=== PATIENT | female | born 1995 | race Caucasian/White ===

== ENCOUNTER 2020-11-02 06:54 | Outpatient (CLI) | payer OTHER, SELFPAY ==
[2020-11-02 07:28] VITALS: BP 140/86; PULSE 120
--- NOTE | 2020-11-02 07:31 | P.PNOB_ITS ---
OB - Triage/Final Diagnosis Visit Information Date of evaluation: 11/02/20 Reason for evaluation: threatened labor Comments/Additional reasons for admission: I have assessed the risk for this patient, Idalmis Shirley Meyer, and determined that she would benefit [facility] care.
== END 2020-11-02 07:30 | disposition home or self-care (01) ==
LOC: ANHOBOP 07:29 → ANHLDR 07:30
PROVIDERS: PCP Nurse Practitioner Adult Health; Visit Provider Student in an Organized Health Care Education/Training Program
DX: O41.8X90 Other specified disorders of amniotic fluid and membranes, unspecified trimester, not applicable or unspecified (principal); Z3A.00 Weeks of gestation of pregnancy not specified
CPT/HCPCS: 59025; 84112; 99199

== ENCOUNTER 2020-11-16 23:40 | Inpatient (IN) | payer OTHER, MEDICAID, SELFPAY ==
--- NOTE | 2020-11-16 23:40 | LDADM ---
This patient, Idalmis Meyer, was admitted to Labor/Delivery/Recovery 108 on 11/16/20 at 23:40. Plans for labor, pain management and were discussed with patient. Patient/family oriented to hospital policies and general routines including ID bracelet, bed and alarms, visiting hours, pain management, procedures, bathroom and other care routines, personal items, smoking policy, room service/diet and guest tray routines, infant security routines, and visiting hours. Patient/Family are encouraged to report perceived risks to care and to ask questions if they do not understand what they are told or what they should do. See OBIX for further documentation.
[2020-11-16 23:59] VITALS: BP 136/81; PULSE 110; RESP 20; TEMP 36.8
[2020-11-17] VITALS (149 sets, daily range): BP systolic 94–157; BP diastolic 29–103; PULSE 66–153; RESP 18–20; TEMP 36.3–37.7; O2SAT 80–100; BMI 36.1
[2020-11-17 00:24] LABS: Basophils Percent Auto 0.2 % (0.2-1.2); Eosinophils Percent Auto 0.2 % (0-4.4); Hematocrit 30.8 % (37.0-47.0); Hemoglobin 9.6 g/dL (12.0-15.0); Immature Granulocyte Absolute 0.04 K/mm3 (0.00-0.031); Immature Granulocyte Percent A 0.5 % (0-0.5); Lymphocytes Absolute Auto 1.93 K/mm3 (0.9-3.2); Lymphocytes Percent Auto 22.1 % (18.3-44.2); Mean Corpuscular HGB Conc 31.2 g/dl (32-36); Mean Corpuscular Hemoglobin 23.8 pg (26-34); Mean Corpuscular Volume 76.2 fl (80-100); Mean Platelet Volume 9.9 fl (7.4-10.4); Monocytes Absolute Auto 0.7 K/mm3 (0.1-0.6); Monocytes Percent Auto 8.1 % (2.6-8.5); Neutrophils Percent Auto 68.9 % (45.5-73.1); Platelet Count Result 307 k/mm3 (150-375); Red Blood Count 4.04 M/mm3 (4.2-5.4); Red Cell Distribution Width 15.2 % (11.5-14.5); White Blood Count 8.7 K/mm3 (4.5-10.0)
[2020-11-17] MEDS: miSOPROStol 25 MCG TABLET VAGINAL ×2 (01:20→05:25)
--- NOTE | 2020-11-17 07:31 | PM.IMHP ---
H&P: HPI History of Present Illness Date/Time: 11/17/20 07:31 Chief Complaint: IUP at term Narrative: Idalmis Meyer is a 25 year old female at 39w4d who presents for elective IOL. Pt's has been uncomplicated. She endorses good movement. She denies any vaginal bleeding or leakage of fluid. Review of Systems Review of Systems: All systems reviewed & are unremarkable except as noted in HPI and below PMFSH Family History Family History Father Colon cancer Sibling Autism Mother Multiple sclerosis Grandparent Lung cancer Dementia Heart disease Leukemia Pancreatic adenoma Social History Social History Smoking status: Never smoker Substance use: never Spiritual care concerns: No Meds Home Medications and Allergies Home Medications Medication Instructions Recorded Confirmed Type ergocalciferol (vitamin D2) 1,250 mcg PO WEEKLY 10/29/20 11/17/20 History [Vitamin D2] prenat.vits,tj,oaj-kqhf-lgxao 1 tablet PO DAILY 10/29/20 11/17/20 History [ #2] Allergies Allergy/AdvReac Type Severity Reaction Status Date / Time No Known Allergies Allergy Verified 10/29/20 12:29 Vital Signs Vital Signs - 24 hr 11/16/20 23:59 11/17/20 01:12 11/17/20 01:30 Temperature 36.8 C 37.1 C Pulse Rate 110 H 101 H 100 Respiratory Rate 20 18 Blood Pressure 136/81 143/84 H 133/77 11/17/20 02:00 11/17/20 02:30 11/17/20 03:00 Temperature Pulse Rate 98 98 95 Respiratory Rate Blood Pressure 132/77 133/84 131/72 11/17/20 03:30 11/17/20 04:00 11/17/20 04:30 Temperature Pulse Rate 97 96 104 H Respiratory Rate Blood Pressure 123/79 122/79 129/85 11/17/20 05:00 11/17/20 05:26 11/17/20 05:30 Temperature 36.9 C Pulse Rate 105 H 105 H 108 H Respiratory Rate 20 Blood Pressure 134/88 147/84 H 136/90 11/17/20 06:00 11/17/20 06:30 11/17/20 07:00 Temperature Pulse Rate 106 H 94 102 H Respiratory Rate Blood Pressure 139/87 132/78 137/86 11/17/20 07:30 Temperature Pulse Rate 99 Respiratory Rate Blood Pressure 137/87 Exam Const: General: cooperative, healthy appearing and comfortable Eyes: General: appearance normal, both eyes and all related structures Neck: Neck: normal visual inspection Resp: Effort & Inspection: normal respiratory effort and able to speak in complete sentences Auscultation: clear to auscultation bilaterally Cardio: Rate: regular rate Rhythm: regular rhythm GI: Inspection: other (Gravid) Skin: General skin exam: normal color Psych: Appearance: grossly normal Mental Status: mental status grossly normal Speech and movement: Normal speech and movement present Affect: normal affect H&P: Results Labs Labs: Short CBC 11/17/20 Range/Units 00:15 WBC 8.7 (4.5-10.0) K/mm3 Hgb 9.6 L (12.0-15.0) g/dL Hct 30.8 L (37.0-47.0) % Plt Count 307 (150-375) k/mm3 Assessment and Plan Assessment and plan (1) Supervision of high risk , unspecified, third trimester: Code(s): O09.93 - Supervision of high risk , unspecified, third trimester Status: Acute Assessment and Plan: 25 yo at 39w4d for elective IOL Rh+ GBS neg FHT cat 1 plan for cytotec induction will augment with pitocin once favorable continuous EFM
[2020-11-17 07:50] LABS: Rapid Plasma Reagin Non-Reactive (NonReactive)
--- NOTE | 2020-11-17 09:38 | WPDANESEPP ---
Anes - Eval Pre Procedure Procedure: labor epidural Date/Time: 11/17/20 09:38 Surgeon: Kacy Preop Diagnosis: Abd pain with contractions Pre Op Diagnosis: Induction of Labor Patient Data Age: 25 Gender: F Height: 5 ft 2 in Weight: 89.5 kg Last Vital Signs Temp 98.4 F 11/17/20 05:26 Pulse 96 11/17/20 09:30 Resp 20 11/17/20 05:26 BP 131/85 11/17/20 09:30 Allergies Allergy/AdvReac Type Severity Reaction Status Date / Time No Known Allergies Allergy Verified 10/29/20 12:29 Home Medications Medication Instructions Recorded Confirmed Type ergocalciferol (vitamin D2) 1,250 mcg PO WEEKLY 10/29/20 11/17/20 History [Vitamin D2] prenat.vits,tj,eyz-fxis-uvtyg 1 tablet PO DAILY 10/29/20 11/17/20 History [ #2] Laboratory Tests 11/17/20 11/17/20 11/17/20 00:15 00:15 00:15 WBC 8.7 K/mm3 K/mm3 (4.5-10.0) RBC 4.04 M/mm3 L M/mm3 (4.2-5.4) Hgb 9.6 g/dL L g/dL (12.0-15.0) Hct 30.8 % L % (37.0-47.0) MCV 76.2 fl L fl (80-100) MCH 23.8 pg L pg (26-34) MCHC 31.2 g/dl L g/dl (32-36) RDW 15.2 % H % (11.5-14.5) Plt Count 307 k/mm3 k/mm3 (150-375) MPV 9.9 fl fl (7.4-10.4) Immature Gran % (Auto) 0.5 % % (0-0.5) Neut % (Auto) 68.9 % % (45.5-73.1) Lymph % (Auto) 22.1 % % (18.3-44.2) Major % (Auto) 8.1 % % (2.6-8.5) Eos % (Auto) 0.2 % % (0-4.4) Baso % (Auto) 0.2 % % (0.2-1.2) Lymph # (Auto) 1.93 K/mm3 K/mm3 (0.9-3.2) Major # (Auto) 0.7 K/mm3 H K/mm3 (0.1-0.6) Eos # (Auto) 0.0 K/mm3 K/mm3 (0-0.3) Baso # (Auto) 0.0 K/mm3 K/mm3 (0.0-0.1) Abs Immat Gran (auto) 0.04 K/mm3 H K/mm3 (0.00-0.031) Absolute Neuts (auto) 6.0 K/mm3 K/mm3 (1.3-6.7) Absolute Nucleated RBC 0.0 K/mm3 K/mm3 (0.0-0.012) Nucleated RBC % 0.0 % % (0.0-0.2) RPR Non-reactive (NonReactive) Blood Type A Positive Antibody Screen Negative Patient hx anesthesia problems: none Family hx anesthesia problems: none PMFSH Past Medical History Medical History Anemia Anxiety and depression GERD (gastroesophageal reflux disease) History of paroxysmal supraventricular tachycardia Overweight (BMI 25.0-29.9) PCOS (polycystic ovarian syndrome) and not yet delivered Family History Family History Father Colon cancer Sibling Autism Mother Multiple sclerosis Grandparent Lung cancer Dementia Heart disease Leukemia Pancreatic adenoma Social History Social History Smoking status: Never smoker Substance use: never Spiritual care concerns: No Exam Day of Procedure 11/17/20 09:38 Patient weight: overweight Airway: Mallampati scale class II Neurological: alert and oriented
--- NOTE | 2020-11-17 10:13 | PM.OBPNLAB ---
Pain Control Date/time seen: 11/17/20 10:13 Pain control: tolerating well Comments: pt s/p cytotec x2. cervix now 2cm and soft Pelvic Exam Dilation (cm): 2 Amniotic membrane status: Intact Contractions Monitor mode: External Contraction pattern: Regular Status status: Category l Comments: baseline 135 bpm, mod variability, no decel, positive accels Assessment and Plan Assessment: induction ongoing Plan: continuous present management Comments: cervical ware bulb placed with 60 cc of saline and placed on traction.
[2020-11-17] MEDS: fentaNYL CITRATE INJ (*CRX) 100 MCG/2 ML VIAL IV PUSH ×2 (10:58→12:53)
[2020-11-17] MEDS: LACTATED RINGERS 1,000 ML 125 ML IV CONT ×3 (15:08→18:33)
--- NOTE | 2020-11-17 16:07 | PM.OBPNLAB ---
Pain Control Date/time seen: 11/17/20 16:07 Pain control: epidural Pelvic Exam Dilation (cm): 4 Amniotic membrane status: Ruptured (clear fluid) Contractions Monitor mode: Internal Contraction pattern: Regular Status status: Category l Assessment and Plan Assessment: induction ongoing Plan: continuous present management Comments: AROM for clear fluid. IUPC placed. pitocin currently at 2
[2020-11-17] MEDS: OXYTOCIN 30 UNITS/NS 500 ML 30 UNITS/500 ML BAG IV CONT (16:13)
[2020-11-17] MEDS: ONDANSETRON INJ 4 MG/2 ML VIAL IV PUSH (20:04)
--- NOTE | 2020-11-17 21:32 | PM.OBPRVD ---
OB - Delivery Note Procedure Procedure: Patient pushed for a spontaneous vaginal delivery. The fetus was delivered atraumatically and placed on the maternal abdomen. The cord was clamped and cut after 1 minute of life. The cord was double clamped and cut and a segment of cord was collected for cord gases. Cord blood was collected for blood type and Coomb's testing. The placenta delivered spontaneously and was noted to be intact. The perineum was inspected and there was a 1st degree perineal and left labial laceration. The laceration was repaired with 3-0 vicryl in the usual fashion. The uterus was firm and good hemostasis was noted. The patient and fetus were stable in the delivery room. Intrapartal events: None Induction method: per misoprostol protocol Delivery augmentation: rupture of membranes Delivery monitor: external FHT Route of delivery: Episiotomy description: None Laceration Description: Perineal - 1st Degree and Labial (left) Delivery repair: vicryl Specimen: No Quantitative Blood Loss (ml): 250 Anesthesia type: Epidural Disposition: floor () Complications: No immediate complications [place] Baby Date of : 11/17/20 Time of : 21:15 Weeks of gestation at delivery: 39 gender: Male Weight (pounds): 7 Weight (ounces): 11 presentation: vertex position: Right Occiput Anterior Placenta delivery description: Spontaneous cord vessel description: 3 Vessels and Nuchal Cord score one minute: 9 score five minutes: 9
[2020-11-17] MEDS: OXYTOCIN 30 UNITS/NS 500 ML 30 UNITS/500 ML BAG 125 UNITS IV CONT (22:15)
[2020-11-17] MEDS: IBUPROFEN 600 MG TABLET PO (23:36)
[2020-11-17] MEDS: BENZOCAINE 20% AER SPR (*SP) 56 GM CAN 1 SPRAY TOPICAL (23:37)
[2020-11-17] MEDS: WITCH HAZEL 40 PADS 1 PAD TOPICAL (23:37)
--- NOTE | 2020-11-18 00:02 | OBPPTRN ---
Patient transferred to post room #292 via wheelchair with in crib. Support person present. Oriented to unit, room, information board, rooming in, admission packet and security measures. Patient verbalizes understanding.
[2020-11-18 00:20] VITALS: BP 126/86; PULSE 89; RESP 16; TEMP 36.7
[2020-11-18 04:00] VITALS: BP 121/82; PULSE 91; RESP 16; TEMP 37.1
[2020-11-18 05:27] LABS: Hematocrit 24.5 % (37.0-47.0); Hemoglobin 7.5 g/dL (12.0-15.0)
[2020-11-18] MEDS: MULTIVIT/MIN/PREN/FOL AC/IRON TABLET 1 TAB PO (07:22)
[2020-11-18] MEDS: POLYSACCHARIDE IRON COMPLEX 150 MG CAPSULE PO ×2 (07:22→15:37)
[2020-11-18] MEDS: DOCUSATE SODIUM 100 MG CAPSULE PO ×2 (07:22→15:37)
[2020-11-18] MEDS: IBUPROFEN 600 MG TABLET PO ×2 (07:22→15:38)
[2020-11-18 07:30] VITALS: BP 102/66; PULSE 100; RESP 18; TEMP 36.4; O2SAT 100
--- NOTE | 2020-11-18 08:42 | PM.OBPNVD ---
OB - PN: Subj Subjective Date/time seen: 11/18/20 08:42 Patient comments: no complaints, pain well controlled and tolerating diet [place] feeding status: exclusively breast feeding Narrative: patient doing well this AM. No complaints. Pain is well controlled. She reports minimal bleeding. She is ambulating and voiding without difficulty. She is tolerating PO. She denies N/V, fever, chills. OB - PN: Obj Data Labs CBC & Chem 7: 11/18/20 05:18 Labs: Laboratory Results - last 24 hr 11/18/20 05:18 Hgb 7.5 L Hct 24.5 L OB - PN A/P Plan day: 1 Plan: routine care Comments: patient doing well H/H 7.02/06, iron supplementation, VSS plan for circumcision today. Risks, benefits, alternatives discussed. continue routine care Time Spent With Patient Time: Total time spent is greater than 50% in coordination of care (as documented) at patient's floor/unit and/or counseling patient: Time with patient: less than 15 minutes Review of Systems Review of Systems: All systems reviewed & are unremarkable except as noted in HPI and below Exam Const: General: comfortable and no acute distress Resp: Effort & Inspection: normal respiratory effort Cardio: Rate: regular rate GI: GI Palp: Yes Soft to palpation and No Tenderness to palpation present (GI) Auscultation: normal bowel sounds Other: fundus firm and below umbilicus. Psych: Affect: normal affect
--- NOTE | 2020-11-18 09:46 | WPDANLDPN2 ---
Anes-Prog Note L&D Date/Time: 11/18/20 09:46 Comfortable throughout: labor and delivery Neuraxial method: epidural Epidural/Spinal procedure site: clean & non-tender Neuro status: Neuro function grossly intact. Cardiovascular status: normal Respiratory status: normal Airway patency: baseline Mental status: baseline Post-Op hydration status: normal Vital Signs: Last Vital Signs Temp 36.4 C 11/18/20 07:30 Pulse 100 11/18/20 07:30 Resp 18 11/18/20 07:30 BP 102/66 11/18/20 07:30 Pulse Ox 100 11/18/20 07:30 Pain score (VAS): 0 I/O: Intake & Output 11/17/20 11/18/20 11/18/20 23:59 07:59 15:59 Intake Total 3100 Output Total 157 Balance 2943 Post-procedural complaints: none Patient feedback: Patient satisfied with anesthetic care.
[2020-11-18 12:18] VITALS: BP 108/64; PULSE 95; RESP 16; TEMP 37.2; O2SAT 100
--- NOTE | 2020-11-18 14:15 | PC.NURSE ---
Consulted with patient, reports infant has fed well since . Mother has nipple discomfort with latch during most of the feeding. Nipple care reviewed and lanolin provided. Mother voices concern with milk supply due to PCOS and issues with fertility. Discussed how this may impact milk supply and reviewed signs of low milk supply. Advised to continue to breastfeed every three hours both breasts if is willing. Mother can initiate pumping a few times a day to stimulate supply. Suggested mother call if she has any issues after discharge. Reviewed feeding cues, frequencies, duration of feedings, feeding elimination flow sheet, and signs of adequate intake. Demonstrated stimulation techniques to wake infant for feeding. Assisted with to breast. Reviewed positioning/alignment in cross cradle, holding breast in U hold and guided asymmetrical latch on. Infant was able to latch correctly within a few attempts. Infant nursed eagerly, with steady draws and frequent swallowing noted. Reviewed signs of a correct latch, effective nursing and suck swallow ratio. was able to maintain latch. Mother reported tenderness at times, had slipped to shallow latch. Demonstrated how to adjust latch more deeply while feeding. Mother quickly reports she can feel infant is latched more deeply and has minimal tenderness. Suggested to stimulate infant while feeding to keep awake and nursing effectively for increased stimulation and increased intake. Instructed mother to call out for RN assistance if she is unable to latch infant for feeding or she has discomfort with nursing. Instructed feeding should be initiated three hours from start of last feeding or if feeding cues are noted before. Mother voiced understanding of information shared. Reviewed transition to breast milk, signs of adequate intake, and engorgement/relief. Instructed to call ICP if intake/output less than required. Reviewed regular medications mother is taking. Information provided per Ingrid. Reviewed community resources on the [facility] website and in the Mom/Baby guide. Information on outpatient services provided. Mother has no further questions at this time.
[2020-11-18 16:00] VITALS: BP 114/80; PULSE 87; RESP 20; TEMP 37.2
[2020-11-18 21:20] VITALS: BP 109/72; PULSE 90; RESP 15; TEMP 36.8
[2020-11-19 07:30] VITALS: BP 127/74; PULSE 97; RESP 18; TEMP 37.4; O2SAT 99
[2020-11-19] MEDS: POLYSACCHARIDE IRON COMPLEX 150 MG CAPSULE PO (09:31)
[2020-11-19] MEDS: DOCUSATE SODIUM 100 MG CAPSULE PO (09:31)
[2020-11-19] MEDS: MULTIVIT/MIN/PREN/FOL AC/IRON TABLET 1 TAB PO (09:31)
[2020-11-19] MEDS: IBUPROFEN 600 MG TABLET PO (09:35)
[2020-11-19] MEDS: BENZOCAINE 20% AER SPR (*SP) 56 GM CAN 1 SPRAY TOPICAL (10:30)
[2020-11-19] MEDS: WITCH HAZEL 40 PADS 1 PAD TOPICAL (10:30)
--- NOTE | 2020-11-19 11:26 | PM.OBPNVD ---
OB - PN: Subj Subjective Date/time seen: 11/19/20 11:26 Narrative: Pain OK. Would like to go home. OB - PN: Obj Data Labs CBC & Chem 7: 11/18/20 05:18 OB - PN A/P Plan Comments: A: PPD#2, doing well. P: Home to f/u 6 weeks. Exam Psych: Other: AVSS ABD soft, nontender, fundus firm EXT nontender
--- NOTE | 2020-11-19 11:26 | PM.OBDSVD ---
DS: Admitting Diagnosis Admitting Diagnosis Admitting Diagnosis: IUP at term DS: Discharge Diagnosis Discharge Diagnosis (1) (normal spontaneous vaginal delivery): Code(s): O80 - Encounter for full-term uncomplicated delivery Status: Acute OB - DS: Summary OB Procedures : None OB Procedures Intrapartum: Spontaneous Vag Delivery OB Procedures: : None Discharge Plan Discharge Attending physician on discharge: Izaiah Woodruff Discharging Clinician: Julio Cesar Lopez Patient Disposition: Home, Self-Care Activity: pelvic rest Diet: regular Discharge Instructions: Call or return if temperature above 100.4? F, increased abdominal pain, increased vaginal bleeding or any new problems. Stand Alone Forms: General Discharge Information Follow-up/Referrals: Izaiah Woodruff MD [Physician] - 6 Weeks Discharge Medications: New ibuprofen 600 mg tablet 600 mg PO Q6H PRN (Reason: cramps) Qty: 30 RF: 0 ferrous sulfate 325 mg (65 mg iron) tablet 325 mg PO DAILY Qty: 30 RF: 0 No Action ergocalciferol (vitamin D2) [Vitamin D2] 1,250 mcg (50,000 unit) Capsule 1,250 mcg PO WEEKLY RF: 0 #2 Tablet 1 tablet PO DAILY RF: 0 Date of admission: 11/16/20 23:40 Primary Care Provider: Sirisha Argueta Admitting Provider: Izaiah Woodruff Attending physician on admission: Izaiah Woodruff Condition: Stable
--- NOTE | 2020-11-19 12:58 | PC.NURSE ---
Patient instructed on viewing the discharge video Mother & Baby Care, The First Two Weeks . Patient was given the opportunity and encouraged to ask questions. Patient verbalized understanding of information shared and has been given the mother/baby guide for home reference.
[2020-11-21 07:53] VITALS: BP 134/85; PULSE 100; RESP 20; TEMP 37.1; O2SAT 100
== END 2020-11-19 13:03 | disposition home or self-care (01) | DRG 807 ==
LOC: ANHLDR 11-17 12:35 → ANHOB2 11-19 11:28 → ANHLDR 11-21 20:15 → ANHOB2 11-21 20:15
PROVIDERS: Admitting Provider Student in an Organized Health Care Education/Training Program; PCP Nurse Practitioner Adult Health; Visit Provider Obstetrics & Gynecology
DX: O69.81X0 Labor and delivery complicated by cord around neck, without compression, not applicable or unspecified (principal); Z37.0 Single live birth; Z3A.39 39 weeks gestation of pregnancy; O36.8330 Maternal care for abnormalities of the fetal heart rate or rhythm, third trimester, not applicable or unspecified; O70.0 First degree perineal laceration during delivery; O99.02 Anemia complicating childbirth; D64.9 Anemia, unspecified; O99.344 Other mental disorders complicating childbirth; F41.8 Other specified anxiety disorders; O99.284 Endocrine, nutritional and metabolic diseases complicating childbirth; E28.2 Polycystic ovarian syndrome; O99.62 Diseases of the digestive system complicating childbirth; K21.9 Gastro-esophageal reflux disease without esophagitis
CPT/HCPCS: 36415; 85014; 85018; 85025; 86592; 86850; 86900; 86901; A9270; J2405; J2590; J2795; J3010; J7120

== ENCOUNTER 2022-06-19 04:32 | Emergency (ER) | payer OTHER, BC, SELFPAY ==
[2022-06-19] VITALS (34 sets, daily range): BP systolic 91–111; BP diastolic 51–68; PULSE 90–138; RESP 14–34; TEMP 37.9; O2SAT 96–100
--- NOTE | ~2022-06-19 | US_ITS ---
EXAMINATION: US OB <= 14 weeks fetus DATE: 06/19/2022 08:34 INDICATION: Abdominal pain. Back pain. . TECHNIQUE: Real-time transabdominal and transvaginal pelvic ultrasound was performed. COMPARISON: None. FINDINGS: TRANSABDOMINAL ULTRASOUND: The uterus measures 8.6 x 6.0 x 6.2 cm. TRANSVAGINAL ULTRASOUND: There is an intrauterine gestational sac. A yolk sac is identified. The fet al crown rump length measures 2 mm, which correlates with an estimated gestational age of 5 weeks and 5 day(s) (+/-) 4 day(s). heart motion is identified measuring 134 beats per minute (bpm) by M- mode Doppler. The right ovary measures 4.2 x 2.4 x 2.6 cm. The left ovary measures 2.7 x 1.2 x 2.2 cm . There is no free fluid in the pelvis. IMPRESSION: 1. Single living intrauterine gestation with estimated date of delivery of 02/14/2023. Reviewed, dictated and finalized at location B. IMPRESSION: 1. Single living intrauterine gestation with estimated date of delivery of 02/14.
--- NOTE | ~2022-06-19 | XR_ITS ---
EXAMINATION: XR chest 1V portable DATE: 06/19/2022 07:32 INDICATION: Cough. TECHNIQUE: A single frontal view of the chest was obtained. COMPARISON: CT abdomen and pelvis 04/09/2016 FINDINGS: The chest demonstrates clear lungs without pneumonia, pleural effusion, or pneumothorax. Th e heart size is normal. IMPRESSION: 1. No acute cardiopulmonary disease. Reviewed, dictated and finalized at location A.
[2022-06-19] MEDS: SODIUM CHLORIDE 0.9% IV 1,000 ML 999 ML IV CONT ×2 (05:30)
[2022-06-19] MEDS: ONDANSETRON INJ 4 MG/2 ML VIAL IV PUSH (05:30)
[2022-06-19 05:39] LABS: Basophils Percent Auto 0.1 % (0.2-1.2); Hemoglobin 10.7 g/dL (12.0-15.0); Immature Granulocyte Absolute 0.06 K/mm3 (0.00-0.031); Immature Granulocyte Percent A 0.4 % (0-0.5); Lymphocytes Absolute Auto 0.58 K/mm3 (0.9-3.2); Lymphocytes Percent Auto 4.1 % (18.3-44.2); Mean Corpuscular HGB Conc 31.5 g/dl (32-36); Mean Corpuscular Hemoglobin 23.6 pg (26-34); Mean Corpuscular Volume 75.1 fl (80-100); Monocytes Absolute Auto 0.7 K/mm3 (0.1-0.6); Monocytes Percent Auto 4.9 % (2.6-8.5); Neutrophils Absolute Auto 12.8 K/mm3 (1.3-6.7); Neutrophils Percent Auto 90.5 % (45.5-73.1); Platelet Count Result 235 k/mm3 (150-375); Red Blood Count 4.53 M/mm3 (4.2-5.4); Red Cell Distribution Width 16.6 % (11.5-14.5); White Blood Count 14.2 K/mm3 (4.5-10.0)
[2022-06-19 05:52] LABS: Alanine Aminotransferase 21 U/L (6-35); Albumin Level 4.3 g/dL (3.5-5.1); Alkaline Phosphatase 87 U/L (38-126); Anion Gap 11 mmol/L (8-16); Aspartate Amino Transferase 20 U/L (14-36); Bilirubin,Total 0.4 mg/dL (0.2-1.3); Blood Urea Nitrogen 6 mg/dL (7-17); Calcium 8.9 mg/dL (8.4-10.2); Carbon Dioxide 19 mmol/L (22-30); Chloride 101 mmol/L (98-107); Estimated CRCL calculation 103 ml/min; Estimated Glomerular Filt Rate > 60; Glucose 108 mg/dL (65-110); Magnesium 1.5 mg/dL (1.6-2.3); Potassium 3.3 mmol/L (3.4-5.0); Sodium 131 mmol/L (137-145)
--- NOTE | 2022-06-19 06:19 | ED.GENADULT ---
HPI - General Adult General Chief complaint: Unspecified <Jermaine Ortega MD - Last Filed: 06/19/22 07:24> Stated complaint: 7 weeks not feeling well <Jermaine Ortega MD - Last Filed: 06/19/22 07:24> Time Seen by Provider: 06/19/22 04:35 <Jermaine Ortega MD - Last Filed: 06/19/22 07:24> History of Present Illness HPI narrative: 27-year-old female is approximately 7 weeks presenting to the emergency department for evaluation of persistent nausea and vomiting. Patient states over the last few weeks he has had persistent nausea and vomiting. Patient denies any cough or fever at home. Patient does have sinus congestion which she attributes to her seasonal allergies. Patient denies vaginal bleeding or abdominal pain. Patient states she is having some lower back pain. <Jermaine Ortega MD - Last Filed: 06/19/22 07:24> Related Data Home medications: Home Medications Medication Instructions Recorded Confirmed ergocalciferol (vitamin D2) 1,250 1,250 mcg PO WEEKLY 10/29/20 11/17/20 mcg (50,000 unit) capsule (Vitamin D2) prenat.vits,tj,piz-rsqz-cbrvg 1 tablet PO DAILY 10/29/20 11/17/20 <Jermaine Ortega MD - Last Filed: 06/19/22 07:24> Allergies/adverse reactions: Allergies Allergy/AdvReac Type Severity Reaction Status Date / Time No Known Allergies Allergy Verified 06/19/22 04:42 <Jermaine Ortega MD - Last Filed: 06/19/22 07:24> [facility] Past Medical History Medical History: Medical History Anemia Anxiety and depression GERD (gastroesophageal reflux disease) History of paroxysmal supraventricular tachycardia Overweight (BMI 25.0-29.9) PCOS (polycystic ovarian syndrome) and not yet delivered <Jermaine Ortega MD - Last Filed: 06/19/22 07:24> Family History Family History: Family History Father Colon cancer Sibling Autism Mother Multiple sclerosis Grandparent Lung cancer Dementia Heart disease Leukemia Pancreatic adenoma <Jermaine Ortega MD - Last Filed: 06/19/22 07:24> Social History Social History: Social History (System 12/08/21 @ 16:32 by Machelle Márquez) Smoking status: Never smoker Alcohol intake: never Substance use: never Spiritual care concerns: No <Jermaine Ortega MD - Last Filed: 06/19/22 07:24> Course Course Emergency Course: Patient's potassium and magnesium were replaced. Patient did feel improved with the IV Tylenol. Patient's IV fluids are pending. At time of signout patient's chest x-ray is pending. Patient does have a leukocytosis of 14.2. Patient's COVID and influenza were negative. Patient is also getting a pelvic ultrasound due to her having some lower back pain. Patient care was signed out to Dr. Conn <Jermaine Ortega MD - Last Filed: 06/19/22 07:24> Reevaluation(s) Reevaluation #1: Patient resting comfortably. Feels markedly improved after IV fluid. Discussed results and IUP with heart rate. She will follow-up with her OB Dr. Woodruff. <Cole Conn MD - Last Filed: 06/19/22 09:48> Date: 06/19/22 <Cole Conn MD - Last Filed: 06/19/22 09:48> Time: 09:45 <Cole Conn MD - Last Filed: 06/19/22 09:48> Vital Signs Vital signs: Vital Signs Temperature 100.2 F H 06/19/22 04:38 Pulse Rate 138 H 06/19/22 04:38 Respiratory Rate 20 06/19/22 04:38 Blood Pressure 110/56 L 06/19/22 04:38 Pulse Oximetry 98 06/19/22 04:38 Oxygen Delivery Room Air 06/19/22 04:38 Temperature 100.2 F H 06/19/22 04:38 Pulse Rate 91 06/19/22 08:47 Respiratory Rate 20 06/19/22 08:47 Blood Pressure 101/59 L 06/19/22 08:46 Pulse Oximetry 100 06/19/22 08:47 Oxygen Delivery Room Air 06/19/22 04:38 <Jermaine Ortega MD - Last Filed: 06/19/22 07:24> Vital Signs Temperature 1
[2022-06-19] MEDS: POTASSIUM CHLORIDE 20 MEQ PACKET (FOR LIQUID) 40 MEQ PO (06:40)
[2022-06-19 07:03] LABS: Influenza A QL RT-PCR Negative (Negative); Influenza B QL RT-PCR Negative (Negative); SARS-CoV-2 RNA PCR Negative
[2022-06-19] MEDS: MAGNESIUM SULF 1 GM/D5W 100 ML 1 GM/100 ML BAG IVPB (07:27)
[2022-06-19 07:52] LABS: Mucus Urine Rare /lpf; Squamous Epithelial Cell Urine Rare /hpf (Few); WBC Urine 0-3 /hpf
[2022-06-19 08:17] LABS: Add Urine Microscopic? YES; Appearance Urine Clear (Clear); Bilirubin Urine Negative (Negative); Blood Urine Negative (Negative); Color Urine Yellow (Yellow); Glucose Urine UA Negative (Negative); Ketones Urine Negative (Negative); Leukocyte Esterase Ur 1+ LEU/UL (Negative); Nitrate Urine Negative (Negative); Protein Urine Negative (Negative); Specific Grav Ur 1.015 (1.001-1.035); Urobilinogen Urine 0.2 mg/dL (<2.0)
== END 2022-06-19 10:07 | disposition home or self-care (01) ==
PROVIDERS: Emergency Medicine; Emergency Provider Emergency Medicine
DX: O21.9 Vomiting of pregnancy, unspecified (principal); O99.891 Other specified diseases and conditions complicating pregnancy; R50.9 Fever, unspecified; Z3A.01 Less than 8 weeks gestation of pregnancy; Z20.822 Contact with and (suspected) exposure to COVID-19
CPT/HCPCS: 36415; 71045; 76801; 80053; 81001; 83735; 84443; 84702; 85025; 87502; 96361; 96365; 96367; 96375; 99284; A9270; C9803; J0131; J2405; J3475; J7030; U0003; U0005

== ENCOUNTER 2022-07-21 12:35 | Emergency (ER) | payer OTHER, BC, SELFPAY ==
[2022-07-21 12:42] VITALS: BP 113/64; PULSE 120; RESP 16; TEMP 37.3; O2SAT 99
--- NOTE | 2022-07-21 12:50 | ED.URI ---
HPI - URI/Sore Throat General Chief Complaint: Upper Respiratory Infection Stated Complaint: cough/body aches Time Seen by Provider: 07/21/22 13:25 Source: patient and RN notes reviewed Mode of arrival: ambulatory Limitations: no limitations History of Present Illness HPI Narrative: 27-year-old female who is 11 weeks presents to concern for to 3 day history cough, body aches, chills, sweats, fever. Reports symptoms seem worse yesterday. She reports she is taking Tylenol, denies other yowe-eqr-uatlsmf mention. She denies shortness of breath. MD elicited complaint: cough Related Data Home Medications Medication Instructions Recorded Confirmed prenat.vits,tj,nop-ycxi-mrtun 1 tablet PO DAILY 10/29/20 11/17/20 bupropion HCl 150 mg 24 hr tablet, 150 mg PO QAM 06/28/22 extended release (Wellbutrin XL) sertraline 100 mg tablet 100 mg PO DAILY 06/28/22 06/28/22 Allergies Allergy/AdvReac Type Severity Reaction Status Date / Time No Known Allergies Allergy Verified 06/28/22 13:36 Review of Systems Review of Systems: CONSTITUTIONAL: Reports malaise, chills, sweats, fever. EYES: Denies visual changes, redness, or discharge. ENT: Reports rhinorrhea, congestion. Denies sinus pain, otalgia and sore throat. CARDIOVASCULAR: Denies chest pain, palpitations, or edema. RESPIRATORY: Reports cough. Denies dyspnea. GASTROINTESTINAL: Denies abdominal pain, nausea, vomiting, diarrhea SKIN: Denies rash or itching. MUSCULOSKELETAL: Reports myalgia. NEUROLOGIC: Denies headache. All systems reviewed & are unremarkable except as noted in HPI and below PMFSH Past Medical History Medical History (Updated 07/21/22 @ 13:38 by Pamela Montiel NP) Anemia Anxiety and depression GERD (gastroesophageal reflux disease) History of paroxysmal supraventricular tachycardia Overweight (BMI 25.0-29.9) PCOS (polycystic ovarian syndrome) and not yet delivered Suppression of menstruation Family History Family History Father Colon cancer Sibling Autism Mother Multiple sclerosis Grandparent Lung cancer Dementia Heart disease Leukemia Pancreatic adenoma Sibling Family history of mental disorder Asthma Mother Family history of multiple sclerosis Father Patient's father is in good health Social History Social History (Updated 06/28/22 @ 13:40 by Shyann Bolden, [facility]) Smoking status: Never smoker Alcohol intake: never Substance use: never Substance use type: does not use Additional living arrangements comments: Additional occupation/education comments: Nursing Gender identity (if verbalized by the patient): Female Sexual Orientation (if Verbalized by the Patient): Straight or Heterosexual Spiritual care concerns: No Comments At time of signature, agree with nursing past medical, surgical, social and family history. There is no relevant family history pertinent to the presenting complaint Exam Narrative: GENERAL: Well-appearing, well-nourished, and in no acute distress. HEAD: Normocephalic EYES: PERRLA, conjunctivae clear ENT: Nares clear, turbinates edematous and erythematous, clear discharge. Mucous membranes moist. TM pearly main with sharp light reflex bilaterally; no tragal tenderness. Oropharynx not erythematous without lesions. Tonsils not enlarged and without exudate, no drooling, no hoarseness, no trismus, uvula midline. NECK: Supple. No lymphadenopathy CHEST: Clear to auscultation, breath sounds equal. No wheezing, rhonchi, rales, or stridor. No respiratory distress, speaks in full sentences. HEART: Regular rate and rhythm. No murmur heard. SKIN: Warm, dry, no rash. NEURO: Alert and oriented x3. PSYCH: Normal mood and affect Course Course Emergency Course: Patient is aware of diagnosis, understands and agrees to treatment plan. Anticipatory guidance given. Patient agrees to follow-up as directed and is awar
== END 2022-07-21 13:47 | disposition home or self-care (01) ==
PROVIDERS: Emergency Provider Nurse Practitioner
DX: O98.511 Other viral diseases complicating pregnancy, first trimester (principal); B33.8 Other specified viral diseases; J11.1 Influenza due to unidentified influenza virus with other respiratory manifestations; Z3A.11 11 weeks gestation of pregnancy; Z20.822 Contact with and (suspected) exposure to COVID-19; O99.611 Diseases of the digestive system complicating pregnancy, first trimester; K21.9 Gastro-esophageal reflux disease without esophagitis; O99.341 Other mental disorders complicating pregnancy, first trimester; F41.9 Anxiety disorder, unspecified; F32.A Depression, unspecified; O99.280 Endocrine, nutritional and metabolic diseases complicating pregnancy, unspecified trimester; E28.2 Polycystic ovarian syndrome
CPT/HCPCS: 87426; 87804; 99213; C9803; G0463

== ENCOUNTER 2022-12-02 17:31 | Observation (INO) | payer OTHER, SELFPAY ==
[2022-12-02 17:50] VITALS: BP 124/70; PULSE 111; RESP 16; TEMP 37.4
[2022-12-02 17:57] VITALS: BMI 36.3
--- NOTE | 2022-12-02 17:59 | OBADM ---
This patient, Idalmis Meyer, admitted to the OB room 116 for observation. Patient/family oriented to hospital policies and general routines including ID bracelet, bed and alarms, visiting hours, pain management, procedures, bathroom and other care routines, personal items, smoking policy, room service/diet, and visiting hours. Patient/Family are encouraged to report perceived risks to care and to ask questions if they do not understand what they are told or what they should do. See OBIX for further documentation.
[2022-12-02 18:20] VITALS: RESP 16; TEMP 37.3
--- NOTE | 2022-12-02 18:20 | PC.NURSE ---
I assumed care of this patient from Peterson Bains RNC. Report received at bedside. Patient unhooked from monitor and taken to restroom for urine collection.
--- NOTE | 2022-12-02 18:25 | PC.NURSE ---
Patient denies any vaginal discharge or bleeding while using the restroom. Patient denies any pain with urination. Urine sample collected and sent to lab for UA with reflux to culture.
--- NOTE | 2022-12-02 18:26 | PC.NURSE ---
Upon assessment patient reports coming to OB unit for evaluation. Patient states she had 3 contractions over night last night 12/01/2022 that resolved following hydration and rest. Patient states that this afternoon she had 3 more contractions that have resolved following hydration. Following the contractions today patient states she has a pelvic pressure with lower right sided pain, patient states she also had a nickel sized blood clot that was expelled while she was using the restroom earlier this evening. Patient states she has not noted any more vaginal discharge or bleeding since that episode. Patient reports active movement and denies any contractions at time of assessment/arrival to OB unit. VSS. Patient reports increased pelvic pressure over the past week.
[2022-12-02 18:47] LABS: Appearance Urine Clear (Clear); Bacteria Urine None Seen /hpf; Bilirubin Urine Negative (Negative); Blood Urine Negative (Negative); Color Urine Yellow (Yellow); Glucose Urine UA Negative (Negative); Ketones Urine Negative (Negative); Leukocyte Esterase Ur Trace LEU/UL (Negative); Nitrate Urine Negative (Negative); Non Pathogenic Casts 0-2; Protein Urine Negative (Negative); RBC Urine 0-2 /hpf (0-2); Specific Grav Ur 1.012 (1.001-1.035); Squamous Epithelial Cell Urine Moderate /hpf (Few); pH Urine 7.5 (5.0-9.0)
[2022-12-02 18:54] LABS: Add Urine Microscopic? YES
--- NOTE | 2022-12-02 19:02 | PC.NURSE ---
This nurse notified Mellissa Mendez CNM of maternal assessment, VS and UA results. UA was reflexed to culture and culture is now pending. FHT appropriate for gestational age and no contractions were noted via monitoring. Abdomen palpates soft. Active movement noted during monitoring. Order to discharge patient to home with instructions for labor precautions and to follow up at regular scheduled OB appointment with Dr. Woodruff on 12/10/2022.
[2022-12-02 19:10] VITALS: RESP 16; TEMP 37.2
--- NOTE | 2022-12-02 19:16 | PC.NURSE ---
This nurse reviewed patient discharge instructions with her prior to discharge. Patient educated on precautions and when to return to OB unit. Patient educated on labor precautions and provided educational handout to take home with labor precautions. Patient provided opportunity to ask questions following discharge instructions and education. Patient states understanding of discharge instructions and education and denies any further questions. Patient instructed to follow-up at her next scheduled appointment with Dr. Woodruff on 12/10/2022. Patient encouraged to come back to OB unit if symptoms worsen or if she has any concerns at all that she would like to have evaluated. Patient left the department ambulating and was agreeable to discharge.
--- NOTE | 2022-12-17 18:25 | PM.OBTRLD ---
OB - Triage/Final Diagnosis Visit Information Date of evaluation: 01/02/23 Reason for evaluation: threatened labor (abdominal pain) Comments/Additional reasons for admission: I have assessed the risk for this patient, Idalmis Watson Mitch, and determined that she would benefit from observation care. Evaluation Laboratory results: Laboratory Tests 12/02/22 18:26 Urine Color Yellow Urine Appearance Clear Urine pH 7.5 Ur Specific [place] 1.012 Urine Protein Negative Urine Glucose (UA) Negative Urine Ketones Negative Ur Blood (Man) Negative Urine Nitrate Negative Urine Bilirubin Negative Urine Urobilinogen 1.0 Leukocyte Esterase Rfl Trace H Urine RBC 0-2 Urine WBC 6-10 H Ur Squamous Epith Cells Moderate Urine Bacteria None seen Urine Casts 0-2
== END 2022-12-02 19:16 | disposition home or self-care (01) ==
PROVIDERS: Admitting Provider Advanced Practice Midwife; Visit Provider Advanced Practice Midwife
DX: O47.03 False labor before 37 completed weeks of gestation, third trimester (principal); O26.893 Other specified pregnancy related conditions, third trimester; R10.9 Unspecified abdominal pain; Z3A.30 30 weeks gestation of pregnancy
CPT/HCPCS: 59025; 81001; 87086; 87088; G0378; G0379

== ENCOUNTER 2023-01-03 12:54 | Outpatient (CLI) | payer OTHER, SELFPAY ==
[2023-01-03 13:59] LABS: Iron 24 ug/dL (37-170)
[2023-01-03 14:08] LABS: Percent Iron Saturation 5 % (20-50)
== END 2023-01-03 12:55 | disposition home or self-care (01) ==
LOC: ANHLAB 12:56
PROVIDERS: Visit Provider Student in an Organized Health Care Education/Training Program
DX: O99.012 Anemia complicating pregnancy, second trimester (principal); Z3A.00 Weeks of gestation of pregnancy not specified
CPT/HCPCS: 36415; 83540; 83550

== ENCOUNTER 2023-01-07 11:07 | Inpatient (IN) | payer OTHER, SELFPAY ==
[2023-01-07] VITALS (22 sets, daily range): BP systolic 118–138; BP diastolic 70–90; PULSE 110–134
--- NOTE | 2023-01-07 12:00 | LDADM ---
This patient, Idalmis Meyer, was admitted to Labor/Delivery/Recovery 105 on 01/07/23 at 11:07. Plans for labor, pain management and were discussed with patient. Patient/family oriented to hospital policies and general routines including ID bracelet, bed and alarms, visiting hours, pain management, procedures, bathroom and other care routines, personal items, smoking policy, room service/diet and guest tray routines, infant security routines, and visiting hours. Patient/Family are encouraged to report perceived risks to care and to ask questions if they do not understand what they are told or what they should do. See OBIX for further documentation.
[2023-01-07] MEDS: NIFEdipine 10 MG CAPSULE 20 MG PO ×2 (12:30→19:07)
[2023-01-07] MEDS: BETAMETHASONE SOD PHOS/ACETATE 30 MG/5 ML VIAL 12 MG IM (12:30)
--- NOTE | 2023-01-07 15:14 | PM.IMHP ---
H&P: HPI History of Present Illness Date/Time: 01/07/23 15:14 Chief Complaint: Intrauterine at term Narrative: 27 yo at 35w1d who presents for labor. Pt was seen at outpatient visit today and complained of regular contractions and increased pelvic pressure. Pt was examined in the office and found to be 4 cm dilated. Review of Systems Cardiovascular: Cardiovascular: Denies chest pain, Denies leg edema, Denies palpitations, Denies dyspnea and Denies dyspnea on exertion Respiratory: Respiratory: Denies cough, Denies dyspnea and Denies dyspnea on exertion Gastrointestinal: Gastrointestinal: Denies abdominal pain, Denies constipation, Denies diarrhea, Denies nausea and Denies vomiting Genitourinary: Genitourinary: Denies hematuria, Denies urinary frequency, Denies dysuria, Denies pelvic pain, Denies urinary incontinence and Denies vaginal discharge Neurologic: Reports system reviewed and no additional complaints, except as documented Psychiatric: Psychiatric: Reports no additional psychiatric complaints Endocrine: Endocrine: Denies palpitations PMFSH Past Medical History Medical History Anemia Anemia affecting in second trimester Anxiety and depression Blood glucose abnormal GERD (gastroesophageal reflux disease) History of paroxysmal supraventricular tachycardia Overweight (BMI 25.0-29.9) PCOS (polycystic ovarian syndrome) and not yet delivered Suppression of menstruation Family History Family History Father Colon cancer Sibling Autism Mother Multiple sclerosis Grandparent Lung cancer Dementia Heart disease Leukemia Pancreatic adenoma Sibling Family history of mental disorder Asthma Mother Family history of multiple sclerosis Father Patient's father is in good health Social History Social History Smoking status: Never smoker Alcohol intake: never Substance use: never Substance use type: does not use Lack of Transportation: No Lack of Food: Never True Current Housing: I Have Housing Concerned About Future Housing: No Difficulty Paying Gas/Electric Bills: No Difficulty Paying for Meds: No Currently Unemployed: No Education: Associate Degree Difficulty w/ Childcare or Family Care: YES Living arrangements: other Additional living arrangements comments: Occupation/Education: student Additional occupation/education comments: Nursing Gender identity (if verbalized by the patient): Female Sexual Orientation (if Verbalized by the Patient): Straight or Heterosexual Spiritual care concerns: No Meds Home Medications and Allergies Home Medications Medication Instructions Recorded Confirmed Type prenat.vits,tj,rpt-uqsm-xmxkg 1 tablet PO DAILY 10/29/20 01/07/23 History bupropion HCl 150 mg 24 hr tablet, 150 mg PO QAM #90 tabs 10/23/22 01/07/23 Rx extended release (Wellbutrin XL) sertraline 100 mg tablet 100 mg PO DAILY #90 tabs 10/23/22 01/07/23 Rx ferrous sulfate 325 mg (65 mg 325 mg PO DAILY 11/26/22 01/07/23 History iron) tablet nifedipine 10 mg capsule 20 mg PO Q6H contractions 6 days 01/08/23 Rx #24 caps Allergies Allergy/AdvReac Type Severity Reaction Status Date / Time No Known Allergies Allergy Verified 01/07/23 10:24 Vital Signs Vital Signs - 24 hr 01/07/23 11:31 01/07/23 11:46 01/07/23 12:01 Pulse Rate 116 H 117 H 110 H Blood Pressure 135/83 132/90 127/86 01/07/23 12:16 01/07/23 12:31 01/07/23 12:46 Pulse Rate 118 H 115 H 117 H Blood Pressure 133/79 131/79 133/79 01/07/23 13:01 01/07/23 13:16 01/07/23 13:31 Pulse Rate 134 H 124 H 119 H Blood Pressure 123/72 132/76 132/76 01/07/23 13:46 01/07/23 14:01 01/07/23 14:16 Pulse Rate 113 H 126 H 121 H Blood Pressure 132/75 138/78 12
[2023-01-08] MEDS: NIFEdipine 10 MG CAPSULE 20 MG PO ×3 (01:02→11:05)
[2023-01-08 08:43] VITALS: BP 115/64; PULSE 128
[2023-01-08 09:00] VITALS: TEMP 36.6
[2023-01-08 12:31] VITALS: BP 125/59; PULSE 120; TEMP 36.5
--- NOTE | 2023-01-09 10:28 | PM.DS ---
DS: Admitting Diagnosis Discharge Date 01/08/23 Admitting Diagnosis labor DS: Discharge Diagnosis Discharge Diagnosis (1) labor in third trimester without delivery: Code(s): O60.03 - labor without delivery, third trimester Status: Acute DS: Summary Hospital Course Reason for hospitalization: labor Hospital Course: 27-year-old 0-1 at 35 weeks 1 day who presents for labor. Patient was complaining of contractions with past several days. Patient was found to be 4 cm dilated in office. Patient was admitted for observation on Labor and delivery. Patient received steroids lung maturity. Patient was placed on Procardia tocolysis. Patient remained stable patient. Cervix remained unchanged. Patient was discharged home with labor precautions. Time Spent with Patient Time attestation: Total time spent providing and/or coordinating discharge services: Time spent: Less than 30 minutes Exam Const: General: cooperative, healthy appearing, comfortable and no acute distress Resp: Effort & Inspection: normal respiratory effort and able to speak in complete sentences Cardio: Rate: regular rate Rhythm: regular rhythm GI: Inspection: normal to inspection GI Palp: No abdominal tenderness, No Soft to palpation, No Tenderness to palpation present (GI) and No Guarding due to palpation present (GI) : Other: Cervix /3, unchanged Discharge Plan Discharge Discharging Clinician: Sameer Pinto Patient Disposition: Home, Self-Care Activity: pelvic rest Diet: as tolerated and regular Discharge Instructions: OB ANTEPARTUM DISCHARGE INSTRUCTIONS This information is given to help you properly care for yourself at home after your discharge from the hospital. Follow these instructions until your doctor tells you otherwise. DIET: Eat Three Well Balanced Meals per Day Drink at Least Eight 8-Ounce Glasses of Water Daily Additional Diet Instructions: ACTIVITY: Pelvic Rest- No [place] Additional Activity Instructions: RETURN TO LABOR AND DELIVERY IF YOU HAVE: Any Change In Baby's Normal Movement Pattern Any Leakage of Fluid Contractions 5-7 Minutes Apart with Increasing Intensity Vaginal Bleeding Additional Reasons to Return to Labor and Delivery: Contractions may feel like abdominal pain, tightening, cramping, pressure, back ache, or thigh ache. FOLLOW-UP CARE: Keep Next Scheduled Appointment To see Dr. Kacy Shankar released to patient or family? N/A Medications from home returned to patient? N/A I Acknowledge Receipt of and Understand the Above Instructions IF YOU HAVE ANY QUESTIONS REGARDING THESE INSTRUCTIONS, PLEASE CALL [phone]. IF PROBLEMS ARISE, CALL YOUR PROVIDER. IF EMERGENCY CARE IS NEEDED, [facility] EMERGENCY ROOM IS AVAILABLE 24 HOURS A DAY. Stand Alone Forms: General Discharge Information Follow-up/Referrals: Izaiah Woodruff MD [Physician] - Keep Reg. Scheduled Appt. Discharge Medications: New nifedipine 10 mg Capsule 20 mg PO Q6H 6 Days Qty: 24 0RF Continued ferrous sulfate 325 mg (65 mg iron) tablet 325 mg PO DAILY prenat.vits,tj,khr-niuz-kgfey Tablet 1 tablet PO DAILY bupropion HCl [Wellbutrin XL] 150 mg tablet extended release 24 hr 150 mg PO QAM Qty: 90 1RF sertraline 100 mg tablet 100 mg PO DAILY Qty: 90 1RF Date of admission: 01/07/23 11:07 Primary Care Provider: PHYSICIAN,CUSHION FORMER Admitting Provider: Izaiah Woodruff Attending physician on admission: Sameer Pinto Condition: Stable
== END 2023-01-08 12:41 | disposition home or self-care (01) | DRG 833 ==
PROVIDERS: Admitting Provider Student in an Organized Health Care Education/Training Program; Visit Provider Obstetrics & Gynecology
DX: O60.03 Preterm labor without delivery, third trimester (principal); Z3A.35 35 weeks gestation of pregnancy
CPT/HCPCS: A9270; J0702

== ENCOUNTER 2023-01-11 09:49 | Outpatient (CLI) | payer OTHER, SELFPAY ==
[2023-01-11 10:00] VITALS: BP 113/72; PULSE 107
== END 2023-01-11 10:45 | disposition home or self-care (01) ==
LOC: ANHOBOP 10:29 → ANHLDR 10:31
PROVIDERS: Visit Provider Student in an Organized Health Care Education/Training Program
DX: O42.90 Premature rupture of membranes, unspecified as to length of time between rupture and onset of labor, unspecified weeks of gestation (principal); Z3A.00 Weeks of gestation of pregnancy not specified
CPT/HCPCS: 59025; 84112; 99199

== ENCOUNTER 2023-01-29 13:20 | Observation (INO) | payer OTHER, SELFPAY ==
--- NOTE | 2023-01-30 11:06 | PM.OBTRLD ---
OB - Triage/Final Diagnosis Visit Information Date of evaluation: 01/29/23 Reason for evaluation: threatened labor Comments/Additional reasons for admission: I have assessed the risk for this patient, Idalmis Meyer, and determined that she would benefit from observation care. Evaluation Vital signs: Vital Signs - 24 hr 01/29/23 14:00 Oxygen Delivery Room Air
== END 2023-01-29 16:40 | disposition home or self-care (01) ==
PROVIDERS: Admitting Provider Student in an Organized Health Care Education/Training Program; Visit Provider Student in an Organized Health Care Education/Training Program
DX: O47.1 False labor at or after 37 completed weeks of gestation (principal); Z3A.38 38 weeks gestation of pregnancy
CPT/HCPCS: G0378; G0379

== ENCOUNTER 2023-02-01 13:47 | Outpatient (RCR) | payer OTHER, SELFPAY ==
[2023-02-01 14:40] VITALS: BP 122/82; PULSE 119
== END 2023-05-02 23:59 | disposition home or self-care (01) ==
LOC: ANHOBOP 13:47
PROVIDERS: Visit Provider Student in an Organized Health Care Education/Training Program
DX: O36.8130 Decreased fetal movements, third trimester, not applicable or unspecified (principal); Z3A.38 38 weeks gestation of pregnancy
CPT/HCPCS: 59025

== ENCOUNTER 2023-02-06 04:46 | Inpatient (IN) | payer OTHER, SELFPAY ==
[2023-02-06] VITALS (72 sets, daily range): BP systolic 105–150; BP diastolic 55–89; PULSE 88–148; RESP 16–18; TEMP 36.6–37; O2SAT 99–100; BMI 36.5
--- NOTE | 2023-02-06 05:09 | OBPPTRN ---
Patient transferred to post room # via ( ). Support person present. Oriented to unit, room, information board, rooming in, admission packet and security measures. Patient verbalizes understanding.
[2023-02-06] MEDS: LACTATED RINGERS 500 ML 999 ML IV CONT (05:30)
[2023-02-06 05:32] LABS: Basophils Percent Auto 0.2 % (0.2-1.2); Eosinophils Percent Auto 0.3 % (0-4.4); Hematocrit 34.9 % (37.0-47.0); Hemoglobin 10.9 g/dL (12.0-15.0); Immature Granulocyte Absolute 0.15 K/mm3 (0.00-0.031); Immature Granulocyte Percent A 1.3 % (0-0.5); Lymphocytes Absolute Auto 2.66 K/mm3 (0.9-3.2); Lymphocytes Percent Auto 22.3 % (18.3-44.2); Mean Corpuscular HGB Conc 31.2 g/dl (32-36); Mean Corpuscular Hemoglobin 27.4 pg (26-34); Mean Corpuscular Volume 87.7 fl (80-100); Mean Platelet Volume 10.1 fl (7.4-10.4); Monocytes Absolute Auto 0.7 K/mm3 (0.1-0.6); Monocytes Percent Auto 5.7 % (2.6-8.5); Neutrophils Absolute Auto 8.4 K/mm3 (1.3-6.7); Neutrophils Percent Auto 70.2 % (45.5-73.1); Platelet Count Result 340 k/mm3 (150-375); Red Blood Count 3.98 M/mm3 (4.2-5.4); Red Cell Distribution Width 21.1 % (11.5-14.5); White Blood Count 11.9 K/mm3 (4.5-10.0)
--- NOTE | 2023-02-06 05:56 | WPDANESEPP ---
Anes - Eval Pre Procedure Procedure: Labor epidural Date/Time: 02/06/23 05:56 Surgeon: hernan Preop Diagnosis: Abdominal pain with contractions Pre Op Diagnosis: IOL Patient Data Age: 27 Gender: F Height: 1.57 m Weight: 90.5 kg Last Vital Signs Pulse 115 H 02/06/23 05:45 BP 129/81 02/06/23 05:45 Allergies Allergy/AdvReac Type Severity Reaction Status Date / Time No Known Allergies Allergy Verified 02/04/23 11:02 Home Medications Medication Instructions Recorded Confirmed Type prenat.vits,tj,jtl-zurt-ijwxy 1 tablet PO DAILY 10/29/20 02/04/23 History bupropion HCl 150 mg 24 hr tablet, 150 mg PO QAM #90 tabs 10/23/22 02/04/23 Rx extended release (Wellbutrin XL) sertraline 100 mg tablet 100 mg PO DAILY #90 tabs 10/23/22 02/04/23 Rx ferrous sulfate 325 mg (65 mg 325 mg PO DAILY 11/26/22 02/04/23 History iron) tablet Laboratory Tests 02/06/23 05:26 WBC 11.9 H K/mm3 (4.5-10.0) RBC 3.98 L M/mm3 (4.2-5.4) Hgb 10.9 L g/dL (12.0-15.0) Hct 34.9 L % (37.0-47.0) MCV 87.7 fl (80-100) MCH 27.4 pg (26-34) MCHC 31.2 L g/dl (32-36) RDW 21.1 H % (11.5-14.5) Plt Count 340 k/mm3 (150-375) MPV 10.1 fl (7.4-10.4) Immature Gran % (Auto) 1.3 H % (0-0.5) Neut % (Auto) 70.2 % (45.5-73.1) Lymph % (Auto) 22.3 % (18.3-44.2) [place] % (Auto) 5.7 % (2.6-8.5) Eos % (Auto) 0.3 % (0-4.4) Baso % (Auto) 0.2 % (0.2-1.2) Lymph # (Auto) 2.66 K/mm3 (0.9-3.2) [place] # (Auto) 0.7 H K/mm3 (0.1-0.6) Eos # (Auto) 0.0 K/mm3 (0-0.3) Baso # (Auto) 0.0 K/mm3 (0.0-0.1) Abs Immat Gran (auto) 0.15 H K/mm3 (0.00-0.031) Absolute Neuts (auto) 8.4 H K/mm3 (1.3-6.7) Absolute Nucleated RBC 0.0 K/mm3 (0.0-0.012) Nucleated RBC % 0.0 % (0.0-0.2) RPR Pending : gestational age HCG: positive Patient hx anesthesia problems: none Family hx anesthesia problems: none Results Review: All pre-operative results and documents have been reviewed as part of the pre-operative evaluation. [facility] Past Medical History Medical History Anemia Anemia affecting in second trimester Anxiety and depression Blood glucose abnormal GERD (gastroesophageal reflux disease) History of paroxysmal supraventricular tachycardia Overweight (BMI 25.0-29.9) PCOS (polycystic ovarian syndrome) and not yet delivered Suppression of menstruation Family History Family History Father Colon cancer Sibling Autism Mother Multiple sclerosis Grandparent Lung cancer Dementia Heart disease Leukemia Pancreatic adenoma Sibling Family history of mental disorder Asthma Mother Family history of multiple sclerosis Father Patient's father is in good health Social History Social History Smoking status: Never smoker Alcohol intake: never Substance use: never Substance use type: does not use Lack of Transportation: No Lack of Food: Never True Current Housing: I Have Housing Concerned About Future Housing: No Difficulty Paying Gas/Electric Bills: No Difficulty Paying for Meds: No Currently Unemployed: No Education: Associate Degree Difficulty w/ Childcare or Family Care: YES Living arrangements: other Additional living arrangements comments: Occupation/Education: student Additional occupation/education comments: Nursing Gender identity (if verbalized by the patient): Female Sexual Orientation (if Verbalized by the Patient): Straight or Heterosexual Spiritual care concerns: No Exam Day of Procedure 02/06/23 05:56
[2023-02-06] MEDS: OXYTOCIN 30 UNITS/NS 500 ML 30 UNITS/500 ML BAG IV CONT (06:57)
[2023-02-06] MEDS: LACTATED RINGERS 1,000 ML 125 ML IV CONT (06:58)
--- NOTE | 2023-02-06 07:09 | WPDHPUPDATE1 ---
History and Physical Update Update Date/Time: 02/06/23 07:09 27 yo at 39w0d who presents for elective IOL. Pt has been complicated by anemia requiring iron transfusion. Pt reports good movement. History and Physical has been reviewed, including an updated exam of the patient. There are NO changes in the patient's condition. Risks, benefits, and alternatives have been discussed and questions answered. Patient agrees to proceed with procedure. A/P: admit to L&D routine admission orders labs reviewed Rh+ GBS neg continuous EFM plan for AROM and pitocin augmentation
[2023-02-06 08:05] LABS: Rapid Plasma Reagin Non-Reactive (NonReactive)
[2023-02-06] MEDS: OXYTOCIN 30 UNITS/NS 500 ML 30 UNITS/500 ML BAG 125 UNITS IV CONT (11:13)
[2023-02-06] MEDS: miSOPROStol 200 MCG TABLET 1000 MCG RECTAL (11:37)
[2023-02-06] MEDS: fentaNYL CITRATE INJ (*CRX) 100 MCG/2 ML VIAL 50 MCG IV PUSH (11:48)
--- NOTE | 2023-02-06 11:53 | P.PCNOB_ITS ---
OB - Delivery Note Procedure Procedure: Patient pushed for a spontaneous vaginal delivery. The fetus was delivered atraumatically and placed on the maternal abdomen. The cord was clamped and cut after 1 minute of life. The cord was double clamped and cut and a segment of cord was collected for cord gases. Cord blood was collected for blood type and Coomb's testing. The placenta delivered spontaneously and was noted to be intact. The perineum was inspected and was intact. There was a right vaginal laceration noted to be bleeding. The laceration was repaired with 3-0 vicryl in a running-locking fashion. The uterus was firm and good hemostasis was noted. The patient and fetus were stable in the delivery room. Delivery monitor: External FHT Route of delivery: Episiotomy description: None Delivery repair: vicryl Specimen: No Quantitative Blood Loss (ml): 350 Anesthesia type: Epidural Disposition: Floor () Complications: No immediate complications [place] [facility] Date of : 02/06/23 Weeks of gestation at delivery: 39 gender: Female presentation: vertex position: Left Occiput Anterior Placenta delivery description: Spontaneous Cord Vessel Description: 3 Vessels and Around Extremity (right leg) AMG Delivery Billing Delivery Delivery: Delivery Charge
[2023-02-06] MEDS: ACETAMINOPHEN 325 MG TABLET 650 MG PO (13:48)
[2023-02-06] MEDS: IBUPROFEN 600 MG TABLET PO (18:17)
--- NOTE | 2023-02-06 18:46 | OBPPTRN ---
1352 Patient transferred to post room #281 via W/C. Support person present. Oriented to unit, room, information board, rooming in, admission packet and security measures. Patient verbalizes understanding.
[2023-02-07] MEDS: IBUPROFEN 600 MG TABLET PO ×3 (00:16→17:30)
[2023-02-07] MEDS: ACETAMINOPHEN 325 MG TABLET 650 MG PO ×3 (00:18→17:30)
[2023-02-07 04:50] VITALS: BP 117/75; PULSE 89; RESP 16; TEMP 36.3
[2023-02-07 05:38] LABS: Hematocrit 28.2 % (37.0-47.0); Hemoglobin 8.8 g/dL (12.0-15.0)
[2023-02-07 07:53] VITALS: PULSE 89; RESP 16; O2SAT 100
[2023-02-07 08:00] VITALS: BP 126/77; PULSE 91; RESP 18; TEMP 36.6; O2SAT 100
[2023-02-07] MEDS: MULTIVIT/MIN/PREN/FOL AC/IRON TABLET 1 TAB PO (08:56)
[2023-02-07] MEDS: POLYSACCHARIDE IRON COMPLEX 150 MG CAPSULE PO ×2 (08:57→17:29)
[2023-02-07] MEDS: DOCUSATE SODIUM 100 MG CAPSULE PO ×2 (08:57→17:29)
[2023-02-07] MEDS: SERTRALINE HCL 50 MG TABLET 100 MG PO (08:57)
--- NOTE | 2023-02-07 11:07 | WPDANLDPN2 ---
Anes-Prog Note L&D Date/Time: 02/07/23 11:07 Neuro status: Neuro function grossly intact. Vital Signs: Last Vital Signs Temp 36.6 C 02/07/23 08:00 Pulse 91 02/07/23 08:00 Resp 18 02/07/23 08:00 BP 126/77 02/07/23 08:00 Pulse Ox 100 02/07/23 08:00 O2 Del Method Room Air 02/07/23 07:53 Pain score (VAS): 0 I/O: Intake & Output 02/06/23 02/07/23 02/07/23 23:59 07:59 15:59 Intake Total 240 Balance 240 Patient feedback: Patient satisfied with anesthetic care.
--- NOTE | 2023-02-07 16:17 | PM.OBDSVD ---
DS: Admitting Diagnosis Discharge Date 02/07/23 Admitting Diagnosis intrauterine at term DS: Discharge Diagnosis Discharge Diagnosis (1) Supervision of high risk , unspecified, third trimester: Code(s): O09.93 - Supervision of high risk , unspecified, third trimester Status: Acute OB - DS: Summary OB Procedures : None OB Procedures Intrapartum: Spontaneous Vag Delivery OB Procedures: : None Peripartum Data Delivery Method: Natural Vaginal Laceration Description: Labial complications: uterine atony Status at Discharge Functional status at discharge: independent ambulation Overall status at discharge: patient is back to baseline Time Spent with Patient Time attestation: Total time spent providing and/or coordinating discharge services: Time spent: Less than 30 minutes Exam Const: General: comfortable and no acute distress Resp: Effort & Inspection: normal respiratory effort Auscultation: clear to auscultation bilaterally Cardio: Rate: regular rate GI: GI Palp: Yes Soft to palpation Auscultation: normal bowel sounds Other: Fundus firm below umbilicus Psych: Appearance: grossly normal Mental Status: mental status grossly normal Affect: normal affect DS: Data Data Completed and Pending Labs on day of discharge: Labs from last 24 hours 02/07/23 04:50 Hgb 8.8 L Hct 28.2 L Discharge Plan Discharge Discharging Clinician: Izaiah Woodruff Patient Disposition: Home, Self-Care Activity: as tolerated and pelvic rest Diet: regular Patient Instructions: Antibiotic Form, Vaginal Delivery (DC) Stand Alone Forms: General Discharge Information Follow-up/Referrals: Izaiah Woodruff MD [Physician] - Discharge Medications: New acetaminophen 500 mg tablet 500 mg PO Q6H PRN (Reason: pain) Qty: 30 0RF ibuprofen 600 mg tablet 600 mg PO Q6H PRN (Reason: pain) Qty: 30 0RF Continued ferrous sulfate 325 mg (65 mg iron) tablet 325 mg PO DAILY prenat.vits,tj,mfs-rrxk-hsaol Tablet 1 tablet PO DAILY bupropion HCl [Wellbutrin XL] 150 mg tablet extended release 24 hr 150 mg PO QAM Qty: 90 1RF sertraline 100 mg tablet 100 mg PO DAILY Qty: 90 1RF Date of admission: 02/06/23 04:46 Primary Care Provider: PHYSICIAN,GROUP ACTIVITIES AIDE Admitting Provider: Izaiah Woodruff Attending physician on admission: Izaiah Woodruff Condition: Stable
--- NOTE | 2023-02-07 18:13 | PC.NURSE ---
Patient viewed the discharge video Mother & Baby Care, The First Two Weeks . Patient was given the opportunity and encouraged to ask questions. Patient verbalized understanding of information shared and has been given the mother/baby guide for home reference.
[2023-02-09 13:34] VITALS: BP 135/75; PULSE 91; RESP 20; TEMP 37; O2SAT 100
== END 2023-02-07 18:40 | disposition home or self-care (01) | DRG 806 ==
LOC: ANHLDR 04:50 → ANHOB2 14:01
PROVIDERS: Admitting Provider Student in an Organized Health Care Education/Training Program; Visit Provider Student in an Organized Health Care Education/Training Program
DX: O99.02 Anemia complicating childbirth (principal); O71.4 Obstetric high vaginal laceration alone; Z37.0 Single live birth; Z3A.39 39 weeks gestation of pregnancy; O69.82X0 Labor and delivery complicated by other cord entanglement, without compression, not applicable or unspecified; D64.9 Anemia, unspecified; K21.9 Gastro-esophageal reflux disease without esophagitis; O99.62 Diseases of the digestive system complicating childbirth; O99.344 Other mental disorders complicating childbirth; F41.8 Other specified anxiety disorders
CPT/HCPCS: 36415; 85014; 85018; 85025; 86592; 86850; 86900; 86901; A9270; J2590; J2795; J3010; J7120

== ENCOUNTER 2023-03-25 07:06 | Outpatient (CLI) | payer OTHER, SELFPAY ==
[2023-03-25 08:25] LABS: Beta HCG Quantitative < 2.39 mIU/ML
== END 2023-03-25 07:07 | disposition home or self-care (01) ==
PROVIDERS: Visit Provider Student in an Organized Health Care Education/Training Program
DX: N92.6 Irregular menstruation, unspecified (principal)
CPT/HCPCS: 36415; 84702

== ENCOUNTER 2024-04-04 08:08 | Outpatient (CLI) | payer OTHER, SELFPAY ==
[2024-04-04 08:56] LABS: Basophils Percent Auto 0.6 % (0.2-1.2); Eosinophils Percent Auto 0.4 % (0-4.4); Hematocrit 43.1 % (37.0-47.0); Hemoglobin 12.8 g/dL (12.0-15.0); Immature Granulocyte Absolute 0.01 K/mm3 (0.00-0.031); Immature Granulocyte Percent A 0.2 % (0-0.5); Lymphocytes Percent Auto 28.7 % (18.3-44.2); Mean Corpuscular HGB Conc 29.7 g/dl (32-36); Mean Corpuscular Volume 80.9 fl (80-100); Mean Platelet Volume 11.5 fl (7.4-10.4); Monocytes Absolute Auto 0.3 K/mm3 (0.1-0.6); Monocytes Percent Auto 5.2 % (2.6-8.5); Neutrophils Absolute Auto 3.4 K/mm3 (1.3-6.7); Neutrophils Percent Auto 64.9 % (45.5-73.1); Platelet Count Result 287 k/mm3 (150-375); Red Blood Count 5.33 M/mm3 (4.2-5.4); Red Cell Distribution Width 14.2 % (11.5-14.5); White Blood Count 5.2 K/mm3 (4.5-10.0)
[2024-04-04 09:08] LABS: Alanine Aminotransferase 22 U/L (6-35); Albumin Level 4.7 g/dL (3.5-5.1); Alkaline Phosphatase 95 U/L (38-126); Anion Gap 12 mmol/L (4-12); Aspartate Amino Transferase 21 U/L (14-36); Bilirubin,Total 0.5 mg/dL (0.2-1.3); Blood Urea Nitrogen 10 mg/dL (7-17); Carbon Dioxide 25 mmol/L (22-30); Chloride 101 mmol/L (98-107); Estimated Glomerular Filt Rate > 60; Glucose 105 mg/dL (65-110); Potassium 4.4 mmol/L (3.4-5.0); Sodium 138 mmol/L (137-145)
[2024-04-04 09:35] LABS: Iron 49 ug/dL (37-170)
[2024-04-04 09:44] LABS: Percent Iron Saturation 13 % (20-50)
[2024-04-04 09:59] LABS: Platelet Estimate Adequate (Adequate); Schistocytes None Seen
[2024-04-04 10:08] LABS: Ferritin 8.81 ng/mL (6.24-137)
== END 2024-04-04 08:09 | disposition home or self-care (01) ==
LOC: ANHLAB 08:10
PROVIDERS: PCP Family Medicine; Visit Provider Physician Assistant Medical
DX: D50.9 Iron deficiency anemia, unspecified (principal); F41.9 Anxiety disorder, unspecified; E78.2 Mixed hyperlipidemia
CPT/HCPCS: 36415; 80053; 82728; 83540; 83550; 84443; 85025

== ENCOUNTER 2024-09-30 14:30 | Outpatient (CLI) | payer OTHER, SELFPAY ==
[2024-09-30 15:04] LABS: Alanine Aminotransferase 14 U/L (6-35); Albumin Level 4.4 g/dL (3.5-5.1); Alkaline Phosphatase 121 U/L (38-126); Anion Gap 8 mmol/L (4-12); Aspartate Amino Transferase 19 U/L (14-36); Bilirubin,Total 0.5 mg/dL (0.2-1.3); Blood Urea Nitrogen 7 mg/dL (7-17); Carbon Dioxide 27 mmol/L (22-30); Chloride 103 mmol/L (98-107); Estimated Glomerular Filt Rate > 60; Glucose 89 mg/dL (65-110); Potassium 4.7 mmol/L (3.4-5.0); Sodium 138 mmol/L (137-145)
[2024-09-30 15:10] LABS: Basophils Percent Auto 0.4 % (0.2-1.2); Eosinophils Percent Auto 0.4 % (0-4.4); Hematocrit 42.2 % (37.0-47.0); Immature Granulocyte Absolute 0.02 K/mm3 (0.00-0.031); Immature Granulocyte Percent A 0.2 % (0-0.5); Lymphocytes Absolute Auto 2.17 K/mm3 (0.9-3.2); Lymphocytes Percent Auto 27.1 % (18.3-44.2); Mean Corpuscular HGB Conc 30.8 g/dl (32-36); Mean Corpuscular Hemoglobin 25.9 pg (26-34); Mean Corpuscular Volume 84.2 fl (80-100); Mean Platelet Volume 11.1 fl (7.4-10.4); Monocytes Absolute Auto 0.5 K/mm3 (0.1-0.6); Monocytes Percent Auto 5.7 % (2.6-8.5); Neutrophils Absolute Auto 5.3 K/mm3 (1.3-6.7); Neutrophils Percent Auto 66.2 % (45.5-73.1); Platelet Count Result 295 k/mm3 (150-375); Red Blood Count 5.01 M/mm3 (4.2-5.4); Red Cell Distribution Width 13.2 % (11.5-14.5)
[2024-09-30 16:05] LABS: Iron 42 ug/dL (37-170)
[2024-09-30 16:14] LABS: Percent Iron Saturation 11 % (20-50)
[2024-09-30 16:44] LABS: Ferritin 9.04 ng/mL (6.24-137)
== END 2024-09-30 14:31 | disposition home or self-care (01) ==
LOC: ANHLAB 14:35
PROVIDERS: PCP Clinical Nurse Specialist; Visit Provider Clinical Nurse Specialist
DX: D50.9 Iron deficiency anemia, unspecified (principal); E28.2 Polycystic ovarian syndrome; R73.09 Other abnormal glucose; Z13.228 Encounter for screening for other metabolic disorders
CPT/HCPCS: 36415; 80053; 82728; 83036; 83540; 83550; 85025

== ENCOUNTER 2024-12-26 21:02 | Emergency (ER) | payer OTHER, SELFPAY ==
--- NOTE | ~2024-12-26 | CT_ITS ---
CT abdomen pelvis wo con Ordering provider: Bertha Rao PA-C History: 29 years Female with . L flank pain, hx stones . Comparison: April 09, 2016 Technique: CT abdomen and pelvis without IV and without oral contrast. Automated exposure control and iterative reconstruction technique were employed. The dose-length product was 253.20 mGy-cm. Findings: VISUALIZED LOWER CHEST: Dependent atelectatic changes. UPPER ABDOMINAL ORGANS: Liver: Normal. Gallbladder: Normal. Spleen: Normal. Stomach/duodenum: Normal. Pancreas: Normal. Adrenals: Normal. Kidneys: Bilateral tiny kidney stones. Tiny stone is seen in the left ureterovesical junction measuri ng 4 mm. Mild left hydronephrosis. The PELVIC ORGANS: The bladder is normal. BOWEL AND MESENTERY: Colon: No evidence of diverticulitis.. Normal appendix. Small Bowel: Normal. No obstruction. Peritoneum/mesentery: No free air or free fluid. No mesenteric lymphadenopathy. RETROPERITONEUM: Normal aorta. No retroperitoneal lymphadenopathy. MUSCULOSKELETAL: Superficial soft tissues: The superficial soft tissues are normal. Bones: Normal spine. IMPRESSION: 1. 4 mm Left ureterovesical junction stone with mild left hydronephrotic changes. Tiny bilateral kid hui stones. 2. No evidence of appendicitis, diverticulitis or intestinal suction. Reviewed, dictated and finalized at location A. IMPRESSION: 1. 4 mm Left ureterovesical junction stone with mild left hydronephrotic santiago es. Tiny bilateral kidney stones. 2. No evidence of appendicitis, diverticulitis or intestinal suction.
[2024-12-26 21:04] VITALS: BP 114/77; PULSE 129; RESP 22; TEMP 36.8; O2SAT 100
--- OUTSIDE RECORDS SUMMARY | 2024-12-26 21:04 | XMS_ITS | Referral Summary ---
Author Organization [facility] [address] Address [address] [place] [address] Care Team Providers Care Retail Assistant Store Manager Name Role Phone Len Sirisha MARCUS Primary Care Provider [phone] Allergies No known active allergies Medications Zafemy 150-35 mcg/24 hr 1 Active sertraline (ZOLOFT) 50 mg tablet sertraline 50 mg tablet TAKE ONE TABLET BY MOUTH ONCE DAILY Active Active Problems Problem Noted Date Diagnosed Date -induced hypertension in third trimeste r 01/27/2021 Palpitations 03/24/2019 Tachycardia 03/24/2019 Sinus arrhythmia 03/24/2019 Dizziness 03/24/2019 PCOS (polycystic ovarian syndrome) 09/02/2018 Immunizations Immunization Administration Dates Next Due Influenza, Quadrivalent, Split, Intramuscular Influenza, Quadrivalent, Spl it, Preservative Free, Intramuscular 06/14/2021 Pfizer SARS-CoV-2 Monovalent Vaccination (12+ Yrs) PURPLE 01/21/2021,12/30/2020 Tdap 01/04/2023,09/26/2020 Social History Tobacco Use Types Packs/Day Years Used Date Smoking Tobacco: Never Smokeless Tobacco: Never Alcohol Use Standard Drinks/Week Comments Not Currently 0 (1 standard drink = 0.6 oz pur e alcohol) archie AUDIT-C Answer Date Recorded Frequency of Alcohol Consumption Never 03/18/2019 Average Number of Drinks Not on file 019 Frequency of Binge Drinking Not on file 11/2018 Comments Unknown Sex and Gender Information Value Date Recorded Sex Assigned at Not on file Legal Sex Female 1:30 PM CDT Gender Identity Not on file Sexual Orientation Not on file Last Filed Vital Signs Vital Sign Reading Time Taken Comments Blood Pressure 110/60 01/27/2021 7:38 AM CDT Pulse 83 01/27/2021 7:38 AM CDT Temperature - - Respiratory Rate 16 07/21/2018 12:20 PM ACCOUNTS PAYABLE MANAGER Oxygen Saturation 99% 01/27/2021 7:38 AM CDT Inhaled Oxygen Concentration - - Weight 76.2 kg (168 lb) 01/27/2021 7:38 AM CDT Height 157.5 cm (5' 2 ) 01/27/2021 7:38 AM CDT Body Mass Index 30.73 01/27/2021 7:38 AM CDT Plan of Treatment Not on file Insurance [facility] EMPLOYEE HEALTH PLANS Address: [facility] [id number] [place] [address] [facility] [employer] OPEN ACCESS Care Teams Retail Assistant Store Manager Relationship Specialty Start Date End Date Sirisha Harrington NP PCP - General Nurse Practitioner 03/17/19
--- OUTSIDE RECORDS SUMMARY | 2024-12-26 21:04 | XMS_ITS | Clinical Summary ---
Author Organization [facility] [address] Address [address] [place] [address] Care Team Providers Care Supply Planner Name Role Phone Trinagarrett Sirisha VELAZQUEZ Primary Care Provider [phone] Allergies No known active allergies Medications Zafemy [...] Vaccination (12+ Yrs) PURPLE 01/21/2021,12/30/2020 Tdap 01/04/2023,09/26/2020 Surgical History Surgery Date Site/Laterality Comments DENTAL SURGERY Medical History Medical History Date Comments Depression Anxiety Exposure to blood Arrhythmia Family History Medical History Relation Name Comments Learning disabilities Brother Colon cancer Father Diabetes Maternal Grandfather Lung cancer Maternal Grandfather Blood Clot Mother Heart disease Mother Mental illness Mother Obesity Mother Cancer Other 1 Reported Family History Of Cancer - father; MGF; PGM (Added by TW Conv) Diabetes Other 2 Diabetes Mellit us - MGF (Added by TW Conv) Lung disease Other 3 Pulmonary Disea se - mgf (Added by TW Conv) Obesity Other 4 Obesity - MOTHE R; SISTER (Added by TW Conv) Other Other 5 Disorders Of Bl ood And Blood-forming Organs - MOTHER (Added by TW Conv) Intellectual Disability Other 6 Inte llectual Disabilities - BROTHER (Added by TW Conv) Pancreatic cancer Paternal Grandfather Cancer Paternal Grandmother Cholelithiasis Sister Lung disease Sister Mental illness Sister Obesity Sister Relation Name Status Comments Brother Father Maternal Grandfather Mother Other 1 Other 2 Other 3 Other 4 Other 5 Other 6 Paternal Grandfather Paternal Grandmother Sister Social History Tobacco Use Types Packs/Day Years [...] on file Sexual Orientation Not on file Obstetrics History Para Term AB IAB SAB Ectopic Multiple Livin g Live Births 2 2 2 Date Outcome GA Total Labor Labor/2nd/3rd Weight Sex Type Anes PTL Aimee A1 A5 Name Clin 2012 SAB SAB 2015 SAB SAB Comments 2012 & 2014-SAB, past tissue spontaneously, no instrumentation. Last Filed Vital Signs Vital Sign Reading Time Taken Comments Blood Pressure 110/60 01/27/2021 7:38 AM CDT Pulse 83 01/27/2021 7:38 AM CDT Temperature - - Respiratory Rate 16 07/21/2018 12:20 PM TRACKMAN Oxygen Saturation 99% 01/27/2021 7:38 AM CDT Inhaled Oxygen Concentration - - Weight 76.2 kg (168 lb) 01/27/2021 7:38 AM CDT Height 157.5 cm (5' 2 ) 01/27/2021 7:38 AM CDT Body Mass Index 30.73 01/27/2021 7:38 AM CDT Plan of Treatment Health Maintenance Due Date Last Done Comments Cervical Cancer Screening 1995 Depression Screening 1995 Hepatitis C Screening 1995 Varicella Vaccines (1 of 2 - 13+ 2-dose series) 2008 Hepatitis B Screening 2013 Regular Well Visit/Exam 18-64 2013 Covid-19 Vaccine (3 - 2023-2 5 season) 2024 01/21/2021, 12/30/2020 Influenza Vaccine (#1) 2024 , 06/14/2021, 08/02/2020 DTaP/Tdap/Td Vaccine (3 - Td or Tdap) 01/04/2033 01/04/2023, 09/26/2020 HPV Vaccines Aged Out No longer eligi ble based on patient's age to complete this topic Pneumococcal vaccine <65 Aged Out No longer eligible based on patient's age to complete this topic Insurance [facility] EMPLOYEE HEALTH PLANS Address: [address] [address] [facility] H[facility]/PPO Address: [address] [address] [place] [address] [facility] [employer] OPEN ACCESS Care Teams Supply Planner Relationship Specialty Start Date End Date Sirisha Harrington NP PCP - General Nurse Practitioner 03/17/19
--- OUTSIDE RECORDS SUMMARY | 2024-12-26 21:04 | XMS_ITS | Clinical Summary ---
Author Organization [facility] [employer] [place] Address [address] [place] [address] Care Team Providers Care Construction Controller Name Role Phone Unavailable Primary Care Provider Unavailabl e Immunizations Immunization Administration Dates Next Due INFLUENZA VACCINE QUADRIVALENT 6 MOS UP PF IM Social History Tobacco Use Types Packs/Day Years Used Date Smoking Tobacco: Never Assessed Comments Unknown Sex and Gender Information Value Date Recorded Sex Assigned at Not on file Legal Sex Female 1:55 PM CDT Gender Identity Not on file Sexual Orientation Not on file Plan of Treatment Health Maintenance Due Date Last Done Comments HEPATITIS B VACCINES (1 of 3 - 19+ 3-dose series) 2014 CERVICAL CANCER SCREENING 2016 HPV/Cotest (21-29) 2016 PAP SMEAR 2016 PAP SMEAR 2016 INFLUENZA VACCINE (#1) 2024 , 08/02/2020 DTAP/TDAP/TD VACCINES (2 - T d or Tdap) 09/26/2030 09/26/2020 HPV VACCINES Aged Out No longer eligi ble based on patient's age to complete this topic PNEUMOCOCCAL VACCINE 0-49 YEARS Aged Out No longer eligible b ased on patient's age to complete this topic Insurance [facility] OPTIONS PPO [id number]
[2024-12-26] MEDS: MORPHINE SULFATE (*CRX) 4 MG/ML INJ IV PUSH (21:51)
[2024-12-26] MEDS: ONDANSETRON INJ 4 MG/2 ML VIAL IV PUSH (21:51)
[2024-12-26] MEDS: SODIUM CHLORIDE 0.9% IV 1,000 ML 999 ML IV CONT ×2 (21:51→23:17)
[2024-12-26 21:59] LABS: Basophils Percent Auto 0.3 % (0.2-1.2); Eosinophils Percent Auto 0.2 % (0-4.4); Hematocrit 43.1 % (37.0-47.0); Hemoglobin 13.7 g/dL (12.0-15.0); Immature Granulocyte Absolute 0.02 K/mm3 (0.00-0.031); Immature Granulocyte Percent A 0.2 % (0-0.5); Lymphocytes Percent Auto 22.5 % (18.3-44.2); Mean Corpuscular HGB Conc 31.8 g/dl (32-36); Mean Corpuscular Hemoglobin 25.8 pg (26-34); Mean Corpuscular Volume 81.3 fl (80-100); Mean Platelet Volume 12.1 fl (7.4-10.4); Monocytes Absolute Auto 0.6 K/mm3 (0.1-0.6); Monocytes Percent Auto 6.8 % (2.6-8.5); Neutrophils Absolute Auto 6.2 K/mm3 (1.3-6.7); Platelet Count Result 286 k/mm3 (150-375); Red Cell Distribution Width 14.1 % (11.5-14.5); White Blood Count 8.9 K/mm3 (4.5-10.0)
--- OUTSIDE RECORDS SUMMARY | 2024-12-26 21:59 | XMS_ITS | Clinical Summary ---
Author Organization [facility] [place] Address [address] [place] [address] Care Team Providers Care Piercing Machine Operator Name Role Phone Unavailable Primary Care Provider [...] patient's age to complete this topic Insurance [facility] OPTIONS PPO [id number]
--- OUTSIDE RECORDS SUMMARY | 2024-12-26 21:59 | XMS_ITS | Clinical Summary ---
Author Organization [facility] [address] Address [address] [place] [address] Care Team Providers Care School Year Nanny Name Role Phone Trinagarrett Sirisha VELAZQUEZ Primary Care Provider [phone] Allergies No known active allergies Medications Zafemy [...] - Respiratory Rate 16 07/21/2018 12:20 PM CONCRETE CRUSHER LOADER OPERATOR Oxygen Saturation 99% 01/27/2021 7:38 AM CDT [...] patient's age to complete this topic Insurance [facility] HE[employer] PL[employer] Address: [address] [address] [facility] HMO/PPO Address: [address] [address] [place] [address] [facility] [employer] OPEN ACCESS Care Teams School Year Nanny Relationship Specialty Start Date End Date Sirisha Harrington NP PCP - General Nurse Practitioner 03/17/19
--- OUTSIDE RECORDS SUMMARY | 2024-12-26 21:59 | XMS_ITS | Referral Summary ---
Author Organization [facility] [address] Address [address] [place] [address] Care Team Providers Care Umbrella Finisher Name Role Phone Len Sirisha MARCUS Primary Care Provider [phone] Allergies No known active allergies Medications Zafemy [...] - Respiratory Rate 16 07/21/2018 12:20 PM FURNACE MAINTENANCE Oxygen Saturation 99% 01/27/2021 7:38 AM CDT Inhaled Oxygen Concentration - - Weight 76.2 kg (168 lb) 01/27/2021 7:38 AM CDT Height 157.5 cm (5' 2 ) 01/27/2021 7:38 AM CDT Body Mass Index 30.73 01/27/2021 7:38 AM CDT Plan of Treatment Not on file Insurance [facility] EMPLOYEE HEALTH PLANS Address: [facility] [address] [place] [address] [facility] HMO/PPO Address: [address] [address] [place] [address] [facility] City Notes OPEN ACCESS Care Teams Umbrella Finisher Relationship Specialty Start Date End Date Sirisha Harrington NP PCP - General Nurse Practitioner 03/17/19
--- NOTE | 2024-12-26 22:03 | ED_ITS ---
HPI - Female Genitourinary General Chief complaint: Urogenital-Female Stated complaint: L flank Time Seen by Provider: 12/26/24 21:42 Source: patient Mode of arrival: ambulatory Limitations: no limitations History of Present Illness HPI Narrative: Patient is a 29-year-old female who presents the ED with report of left flank pain. Patient reports pain began today and has been very severe. Present in her left flank. Denies significant radiation to abdomen. Reports history of previous kidney stones and states this feels similar. Reports difficulty urinating today, N/V. Denies dysuria or hematuria, but reports she has been taking Azo over the past couple days because she thought she was developing a UTI. Denies fevers. Related Data Allergies Allergy/AdvReac Type Severity Reaction Status Date / Time No Known Allergies Allergy Verified 12/26/24 22:28 Review of Systems 2 Review of Systems: All systems reviewed & are unremarkable except as noted in HPI. All systems reviewed & are unremarkable except as noted in HPI and below PMFSH Past Medical History Medical History Encounter for initial insertion of intrauterine contraceptive device Irregular periods/menstrual cycles Blood glucose abnormal Anemia affecting in second trimester Suppression of menstruation PCOS (polycystic ovarian syndrome) Anxiety and depression Anemia GERD (gastroesophageal reflux disease) History of paroxysmal supraventricular tachycardia Overweight (BMI 25.0-29.9) and not yet delivered Surgical History Surgical History H/O tooth extraction H/O gynecological procedure Mirena IUD insertion 03/25/23 Family History Family History Father Colon cancer Sibling Autism Mother Multiple sclerosis Grandparent Lung cancer Dementia Heart disease Leukemia Pancreatic adenoma Sibling Family history of mental disorder Asthma Mother Family history of multiple sclerosis Father Patient's father is in good health Social History Social History Smoking status: Never smoker Alcohol intake: never Substance use: never Substance use type: does not use Lack of Transportation: No Lack of Food: Never True Current Housing: I Have Housing Concerned About Future Housing: No Difficulty Paying Gas/Electric Bills: No Difficulty Paying for Meds: No Currently Unemployed: No Education: Associate Degree Difficulty w/ Childcare or Family Care: YES Living arrangements: other Additional living arrangements comments: Occupation/Education: student Additional occupation/education comments: Nursing Gender identity (if verbalized by the patient): Female Sexual Orientation (if Verbalized by the Patient): Straight or Heterosexual Spiritual care concerns: No Exam 2 Narrative: GENERAL: Uncomfortable appearing, well-nourished, non-toxic, in moderate acute distress due to pain. HEAD: Normocephalic, atraumatic. RESPIRATORY: Airway patent, respirations nonlabored. Clear to auscultation bilaterally, no rales, rhonchi, wheezing. CARDIOVASCULAR: Tachycardic with regular rhythm without murmurs, rubs, or gallops. ABDOMINAL: Soft, no significant tenderness, nondistended. Normoactive BS. Positive CVA tenderness on left MUSCULOSKELETAL: Moves all extremities. No gross deformities. SKIN: Warm, dry, normal color. NEURO: A&O X3. Speech clear. PSYCHIATRIC: Appropriate mood and affect. Normal interaction. Course Vital Signs Vital signs: Vital Signs Temperature 98.2 F 12/26/24 21:04 Pulse Rate 129 H 12/26/24 21:04 Respiratory Rate 22 H 12/26/24 21:04 Blood Pressure 114/77 12/26/24 21:04 Pulse Oximetry 100 12/26/24 21:04 Oxygen Delivery Room Air 12/26/24 21:04 Temperature 98.2 F 12/26/24 21:04 Pulse Rate 88 12/27/24 00:14 Respiratory Rate 17 12/27/24 00:14 Blood Pressure 126/78 12/27/24 00:14 Pulse Oximetry 100 12/27/24 00:14 Oxygen Delivery Room Air 12/26/24 21:04 MDM - Female Genitourinary MDM Narrative Medical decision making narrative: Patient presented to ED with L flank pain, onset today, associated with N/V, hx of kidney stones. Patient tachycardic, tachypneic, in mild acute distress due to pain. Laboratory studies without leukocytosis or anemia. Evidence of dehydration on CMP with bicarb of 17, anion gap of 16. Fluids ongoing. Stable kidney function. UA with > 100 RBC, no evidence of infection. Urine negative. Suspicious for kidney stone. CT abdomen pelvis obtained and showing left UVJ 3 mm stone, mild hydroureteronephrosis. Consistent with exam and history. Discussed lab and imaging findings with patient. She is feeling remarkably better after fluids, dose of morphine. Given dose of Flomax. Pain is controlled at this time. She feels comfortable with discharge home. Will discharge with pain medication, Flomax, Zofran, strainer. Advised to follow-up with urology for further evaluation. Discussed strict return precautions. Patient in agreement with plan. Discharged in stable condition. Medical Records Attestation: I reviewed the patient's medical records. Lab Data Attestation: I reviewed the patient's lab results. 12/26/24 21:51 12/26/24 21:51 Labs: Lab Results 12/26/24 12/26/24 12/26/24 Range/Units 21:51 22:14 23:16 WBC 8.9 (4.5-10.0) K/mm3 RBC 5.30 (4.2-5.4) M/mm3 Hgb 13.7 (12.0-15.0) g/dL Hct 43.1 (37.0-47.0) % MCV 81.3 (80-100) fl MCH 25.8 L (26-34) pg MCHC 31.8 L (32-36) g/dl RDW 14.1 (11.5-14.5) % Plt Count 286 (150-375) k/mm3 MPV 12.1 H (7.4-10.4) fl Immature Gran % (Auto) 0.2 (0-0.5) % Neut % (Auto) 70.0 (45.5-73.1) % Lymph % (Auto) 22.5 (18.3-44.2) % [place] % (Auto) 6.8 (2.6-8.5) % Eos % (Auto) 0.2 (0-4.4) % Baso % (Auto) 0.3 (0.2-1.2) % Lymph # (Auto) 2.00 (0.9-3.2) K/mm3 [place] # (Auto) 0.6 (0.1-0.6) K/mm3 Eos # (Auto) 0.0 (0-0.3) K/mm3 Baso # (Auto) 0.0 (0.0-0.1) K/mm3 Abs Immat Gran (auto) 0.02 (0.00-0.031) K/mm3 Absolute Neuts (auto) 6.2 (1.3-6.7) K/mm3 Absolute Nucleated RBC 0.000 (0.0-0.012) K/mm3 Nucleated RBC % 0.0 (0.0-0.2) % Sodium 136 L (137-145) mmol/L Potassium 3.4 (3.4-5.0) mmol/L Chloride 103 (98-107) mmol/L Carbon Dioxide 17 L (22-30) mmol/L Anion Gap 16 H (4-12) mmol/L BUN 10 (7-17) mg/dL Creatinine 0.85 (0.7-1.0) mg/dL Estim Creat Clear Calc Not Reportable Estimated GFR > 60 (59 - ) Glucose 123 H (65-110) mg/dL Calcium 9.8 (8.4-10.2) mg/dL Total Bilirubin 0.6 (0.2-1.3) mg/dL AST 20 (14-36) U/L ALT 18 (6-35) U/L Alkaline Phosphatase 97 (38-126) U/L Total Protein 8.0 (6.3-8.2) g/dL Albumin 4.9 (3.5-5.1) g/dL Lipase 161 (23-300) U/L Urine Color [place] H (Yellow) Urine Appearance TNP Urine pH TNP Ur Specific [place] TNP Urine Protein TNP Urine Glucose (UA) TNP Urine Ketones TNP Ur Blood (Man) TNP Urine Nitrate TNP Urine Bilirubin TNP Urine Urobilinogen TNP Add Ur Microanalysis Reviewed Leukocyte Esterase Rfl TNP Urine RBC >100 H (0-2) /hpf Urine WBC 0-5 (0-3) /hpf Ur Squamous Epith Cells Moderate (Few) /hpf Urine Bacteria None seen /hpf Urine Casts 0-2 POC Urine HCG, Qual Negative (Negative) Imaging Data Attestation: I personally reviewed and interpreted this imaging study as follows: Radiologist's impression: STAT RAD CT abd/pelvis: Prior 06/24/2015. Limited due to lack of IV contrast. Left UVJ 0.3 cm stone, mild hydroureteronephrosis. Correlate for UTI/pyelonephritis. Discharge Plan Discharge Clinical Impression: Calculus of distal left ureter Patient Disposition: Home Condition: Stable Instructions: Antibiotic Form, Kidney Stones (ED) Additional Instructions: Take Flomax daily as prescribed. Continue Tylenol and Ibuprofen as needed for pain. [place] as needed for more severe pain. Zofran for nausea. Stay well hydrated. Strain urine to collect stone. Follow-up with urology/primary care doctor for further evaluation. Return to the ED if you experience worsening or severe pain, unable to keep down food/drink, fevers, uncontrollable nausea/vomiting, unable to urinate, or any other symptoms of concern. Patient Language: Turkmen Prescriptions: New hydrocodone-acetaminophen 5-325 mg tablet 1 tablet PO Q6H PRN (Reason: pain) Qty: 15 0RF tamsulosin [Flomax] 0.4 mg capsule 0.4 mg PO DAILY Qty: 7 0RF ondansetron 4 mg tablet,disintegrating 4 mg PO Q8H PRN (Reason: nausea and vomiting) Qty: 15 0RF No Action bupropion HCl [Wellbutrin XL] 150 mg tablet extended release 24 hr 150 mg PO QAM Qty: 90 1RF venlafaxine 75 mg capsule,extended release 24hr 75 mg PO DAILY Qty: 90 1RF Zepbound 7.5 mg/0.5 mL pen injector 7.5 mg subcut WEEKLY Qty: 2 0RF Follow-up/Referrals: Hernando Valadez MD [Physician] - (UROLOGY) Darlene Negron FNP-Bravo [Primary Care Provider] - Time of Disposition: 00:56
[2024-12-26 22:09] LABS: Alanine Aminotransferase 18 U/L (6-35); Albumin Level 4.9 g/dL (3.5-5.1); Alkaline Phosphatase 97 U/L (38-126); Anion Gap 16 mmol/L (4-12); Aspartate Amino Transferase 20 U/L (14-36); Bilirubin,Total 0.6 mg/dL (0.2-1.3); Blood Urea Nitrogen 10 mg/dL (7-17); Calcium 9.8 mg/dL (8.4-10.2); Carbon Dioxide 17 mmol/L (22-30); Chloride 103 mmol/L (98-107); Estimated Glomerular Filt Rate > 60; Glucose 123 mg/dL (65-110); Lipase 161 U/L (23-300); Potassium 3.4 mmol/L (3.4-5.0); Sodium 136 mmol/L (137-145)
[2024-12-26 23:06] LABS: Bacteria Urine None Seen /hpf; Need Manual Microscopic Reviewed; Non Pathogenic Casts 0-2; RBC Urine >100 /hpf (0-2); Squamous Epithelial Cell Urine Moderate /hpf (Few); WBC Urine 0-5 /hpf (0-3)
[2024-12-26 23:07] LABS: Add Urine Microscopic? YES
[2024-12-26 23:09] LABS: Color Urine Orange (Yellow)
--- NOTE | 2024-12-26 23:16 | PC.NURSE ---
Report received from FLOYD Douglas. Assumed care of patient at this time.
[2024-12-26 23:17] VITALS: BP 116/82; PULSE 99; RESP 20; O2SAT 100
[2024-12-26 23:19] LABS: BEDSIDEPREGUCG Negative (Negative)
[2024-12-27 00:14] VITALS: BP 126/78; PULSE 88; RESP 17; O2SAT 100
[2024-12-27] MEDS: TAMSULOSIN HCL 0.4 MG CAPSULE PO (00:55)
[2024-12-27 01:38] VITALS: BP 117/80; PULSE 95; RESP 18; O2SAT 100
== END 2024-12-27 01:40 | disposition home or self-care (01) ==
PROVIDERS: Emergency Medicine; Emergency Provider Physician Assistant; PCP Clinical Nurse Specialist
DX: N13.2 Hydronephrosis with renal and ureteral calculous obstruction (principal); E28.2 Polycystic ovarian syndrome; K21.9 Gastro-esophageal reflux disease without esophagitis; F41.9 Anxiety disorder, unspecified; F32.A Depression, unspecified; Z86.2 Personal history of diseases of the blood and blood-forming organs and certain disorders involving the immune mechanism; Z79.899 Other long term (current) drug therapy
CPT/HCPCS: 36415; 74176; 80053; 81001; 81025; 83690; 85025; 96361; 96374; 96375; 99284; A9270; J2270; J2405; J7030

== ENCOUNTER 2025-03-30 12:09 | Outpatient (CLI) | payer OTHER, SELFPAY ==
--- OUTSIDE RECORDS SUMMARY | 2025-03-30 12:11 | XMS_ITS | Referral Summary ---
Author Organization [facility] [address] Address [address] [place] [address] Care Team Providers Care Automatic Glove Former Name Role Phone Len Sirisha MARCUS Primary Care Provider [phone] Allergies No known active allergies Medications Zafemy [...] - Respiratory Rate 16 07/21/2018 12:20 PM DELIMER Oxygen Saturation 99% 01/27/2021 7:38 AM CDT Inhaled Oxygen Concentration - - Weight 76.2 kg (168 lb) 01/27/2021 7:38 AM CDT Height 157.5 cm (5' 2) 01/27/2021 7:38 AM CDT Body Mass Index 30.73 01/27/2021 7:38 AM CDT Plan of Treatment Not on file Insurance [facility] EMPLOYEE HEALTH PLANS Address: [facility] [id number] [place] [address] [facility] [employer] OPEN ACCESS Care Teams Automatic Glove Former Relationship Specialty Start Date End Date Sirisha Harrington NP PCP - General Nurse Practitioner 03/17/19
--- OUTSIDE RECORDS SUMMARY | 2025-03-30 12:11 | XMS_ITS | Clinical Summary ---
Author Organization [facility] Address [address] [place] [phone] Care Team Providers Care Kitchen Steward Name Role Phone Unavailable Primary Care Provider [...] 2016 HPV/Cotest (21-29) 2016 PAP SMEAR 2016 HPV/Cotest (30-65) 2025 INFLUENZA VACCINE (#1) 2025 , 08/02/2020 DTAP/TDAP/TD VACCINES (2 - Td or Tdap) 09/26/2030 09/26/2020 HPV VACCINES Aged Out No longer eligi ble based on patient's age to complete this topic Insurance [facility] OPTIONS PPO [id number]
--- OUTSIDE RECORDS SUMMARY | 2025-03-30 12:11 | XMS_ITS | Clinical Summary ---
Author Organization [facility] [address] Address [address] [place] [address] Care Team Providers Care Steel Fixer Name Role Phone Trinagarrett Sirisha VELAZQUEZ Primary Care Provider [phone] Allergies No known active allergies Medications Zafemy [...] - Respiratory Rate 16 07/21/2018 12:20 PM [employer] Oxygen Saturation 99% 01/27/2021 7:38 AM CDT [...] 5 season) 2024 01/21/2021, 12/30/2020 Influenza Vaccine (Season Ended) 2025 06/17/2023, 06/14/2021, 08/02/2020 DTaP/Tdap/Td Vaccine (3 - Td or Tdap) 01/04/2033 01/04/2023, 09/26/2020 HPV Vaccines Aged Out No longer eligi ble based on patient's age to complete this topic Pneumococcal vaccine <65 Aged Out No longer eligible based on patient's age to complete this topic Insurance [facility] [employer] OPEN ACCESS Care Teams Steel Fixer Relationship Specialty Start Date End Date Sirisha Harrington NP PCP - General Nurse Practitioner 03/17/19
--- OUTSIDE RECORDS SUMMARY | 2025-03-30 12:11 | XMS_ITS | Continuity of Care Document ---
Author Organization [facility] Address [address] [place] [address] Phone Care Team Providers Care Brick Offbearer Name Role Phone Wood OD, Jonas Unavailable Unavailable Advance Directives Directive Yes / No Effective Date File Name No Information Encounters Encounter Description Practice Location Reason(s) For Visit Diagnoses Date Provider Providers Copied on Encounter [facility], [address], [place], [place], [id number], [place] tel:[phone] [facility] No Information 7-[address] 4 Wood OD Jonas. [address], [place], [address], [place]. tel:[phone] Family History Family Member Type Diagnosis Age At Onset No Information Payers Payer name Insurance type Covered alliance party ID Authoriza tion(s) Medicaid [facility] [id number] Social History Type Description Quantity Date Captured Comments Sex Female Smoking Status No Information Chief Complaint And Reason For Visit No Information Reason For Referral Reason For Referral No Information History Of Present Illness Encounter Date Complaint History Of Prese nt Illness No Information Functional Status Date Functional Assessmen t No Information Instructions Date Instruction Additional Infor mation No Information Assessments Type Assessment Date No Information Patient Care Teams Name Effective Dates (start - stop) Status Members No Information
[2025-03-30 14:18] LABS: Thyroid Stimulating Hormone 2.620 uIU/mL (0.465-4.680)
[2025-03-31 08:09] LABS: FSH 10.5 mIU/mL (.)
[2025-03-31 11:08] LABS: LH 21.7 mIU/mL (.)
[2025-04-02 10:08] LABS: Free Testosterone (Direct) 1.5 pg/mL (0.0-4.2)
[2025-04-04 13:07] LABS: Estradiol, Sensitive 64.8 pg/mL (.)
== END 2025-03-30 12:10 | disposition home or self-care (01) ==
LOC: ANHLAB 12:10
PROVIDERS: PCP Clinical Nurse Specialist; Visit Provider Student in an Organized Health Care Education/Training Program
DX: Z01.419 Encounter for gynecological examination (general) (routine) without abnormal findings (principal); E28.2 Polycystic ovarian syndrome
CPT/HCPCS: 36415; 82670; 82679; 83001; 83002; 84144; 84402; 84443